=== PATIENT | male | born 1945 | race Caucasian/White ===

== ENCOUNTER → 2017-02-09 | Outpatient (CLI) | payer OTHER, MEDICARE ==
[~2017-02-09] MED LIST: ADULT LOW DOSE81 MG PO; ALDACTONE25 MG PO; AMBIENCR; B COMPLEX-VITA1 EACH PO; CALCIUM; CELLCEPT500 MG PO; ELIQUIS5 MG PO; GENGRAF25 MG PO; HUMALOG100 UNIT/1 SQ; KEFLEX500 MG PO; LISINOPRIL20 MG PO; METOCLOPRAMIDE; MULTIVITAMINS; OMEGA-3 FISH O1 EAC3 PO; OMEPRAZOLE20 M2 PO; PLAVIX 75 MG TA75 M1 PO; STOOL SOFTENER1 EAC2 PO; TENORMIN25 MG PO; VITAMIN D1000 UNI1 PO; VITAMINC500 PO; ZOCOR 20 MG TAB20 M1 PO
== END ==
LOC: RAD 16:15
DX: J90 Pleural effusion, not elsewhere classified (principal); J18.9 Pneumonia, unspecified organism; J98.11 Atelectasis

== ENCOUNTER → 2017-04-17 | Outpatient (CLI) | payer OTHER, MEDICARE ==
[~2017-04-17] MED LIST changes: +ACCUNEB SO1.25 MG/1 INH; +ACIDOPHILUS1 EAC4 PO; +AMBIEN 5 MG TABL5 M1 PO; +BENADRYL25 MG IV; +BYSTOLIC 5 MG5 M1 PO; +CLARITIN-D 12 H1 TA2 PO; +CLARITIN10 M2 PO; +DEMADEX 2020 MG/1 TA PO; +DIPHENHIST50 MG IV; +ELIQUIS2.5 MG PO; +GLUCAGON HCL1 MG SUBQ; +HEPARIN 1,1000 UNIT/ IV; +LANTUS SUBQ; +LEVAQUIN 500 M500 M2 PO; +LEVEMIR100 UNIT/1 SUBQ; +LIPITOR 20 MG T20 M1 PO; +MELATONIN5 M1 PO; +MIRALAX17 GM PO; +MUCINEX600 MG PO; +NEOSPORIN + P28.3 GM TOP; +NEPHROCAPS SOFT1 CAP PO; +NITROGLYCERIN0.4 MG SUBLING; +NOVOLOG100 UNIT/1 SUBQ; +ONDANSETRON HCL4 M1 IV PUSH; +PROTONIX40 M1 PO; +SENNA PLUS TAB1 EACH PO; +SSD CREAM 1% 5050 GM TOP; +TORSEMIDE20 MG PO; +TYLENOL EXTRA500 MG PO; +TYLENOL325 MG PO; +VANCOMYCIN HCL10 GM PO; +VENTOLIN HFA 1818 GM INH
== END ==
LOC: RAD 11:46
DX: J90 Pleural effusion, not elsewhere classified (principal); I87.8 Other specified disorders of veins; R91.8 Other nonspecific abnormal finding of lung field; I12.9 Hypertensive chronic kidney disease with stage 1 through stage 4 chronic kidney disease, or unspecified chronic kidney disease; E78.00 Pure hypercholesterolemia, unspecified; N18.9 Chronic kidney disease, unspecified; I25.10 Atherosclerotic heart disease of native coronary artery without angina pectoris

== ENCOUNTER 2017-04-19 11:16 | Inpatient (IN) | payer OTHER, MEDICARE ==
[~2017-04-19] VITALS: Ht 193 cm; Wt 78.0 kg
--- NOTE | ~2017-04-19 | CNG ---
[facility] [place] [address] CYTO-NONGYN REPORT PROCEDURE Name: ROSALINO MICHAUD Room #: 353-P ADM IN M.R.#: [id number] Admission: 04/19/17 Date of : 47 Discharge: Report #: [id number] Path Case #: [id number] CYTOPATHOLOGY REPORT COLLECTION DATE: 04/20/2017 RECEIVED DATE: 04/20/2017 SUBMITTING PHYS: Dr. Cornel Guido OTHER PHYS: CLINICAL HISTORY: Pleural effusion, hypoxia, ESRD, anticoagulated SPECIMEN(S) RECEIVED: A.Pleural fluid * * * * * * * * * * * * FINAL DIAGNOSIS: A. Pleural fluid: - No malignant epithelial cells identified. Paucicellular specimen with rare mesothelial cells and predominantly chronic inflammatory cells present. Properly controlled GMS stain (cell block, block A1) is negative for Pneumocystis and fungal elements. PATHOLOGIST: Paris Berry M.D. REPORT ELECTRONICALLY SIGNED BY: Paris Berry M.D. DATE/TIME: 04/21/2017 13:30 * * * * * * * * * * * * GROSS PATHOLOGY: A. Pleural fluid: The specimen is submitted unfixed, labeled "Rosalino Michaud Deepika". Received by the Cytology Department is 30 mL of clear yellow fluid. One ThinPrep slide and a formalin fixed cell block were prepared. Silver stain was performed on cell block. (lg.) MARKET RESEARCH SPECIALIST(S): Jovany Chapin CT([facility] INITIAL CPT CODE(S): A; 76069, 87240, 34245 Professional services performed by [facility] at [facility] [address], [place] [address] Technical services performed by [facility] at [address] [place] [address]., [address], [place] [address]. [facility] [address] [place] [address] CYTO-NONGYN REPORT PROCEDURE Name: ROSALINO MICHAUD Room #: 353-P ADM IN ..#: [id number] Admission: 04/19/17 Date of : 47 Discharge: Report #: [id number] Path Case #: [id number] [facility] [address] [place] [address], [address] [place] [address] PHONE: [phone] DIRECTOR: Wilmer Jc M.D. * * * END OF REPORT * * *
--- NOTE | ~2017-04-19 | HC ---
[facility] [place] [address] CONSULTATION Name: MANGO MICHAUD Deepika Room #: 353-P [facility] IN M.R.#: [id number] Admission: 04/19/17 Attend Phys: Cornel Guido MD Discharge: 04/26/17 Date of : 47 Report #: [id number] THIS REPORT FOR: //name// CC: FAM physician/PCP Cornel Guido DATE OF SERVICE: 04/19/2017 ATTENDING PHYSICIAN: Dr. Guido. REASON FOR CONSULTATION: End-stage renal disease and volume overload. 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 He is a longstanding diabetic of 50 years with ravages thereof. He had a renal transplant for a number of years, then a pancreas after renal transplant and after 20 years his renal transplant failed and he is back on dialysis. He has peripheral arterial disease, has had peripheral arterial procedures on both the arterial tree of both lower extremities. He has diabetes with triopathy including peripheral neuropathy, retinopathy, he is blind in his right eye and poor vision in his left. He has had amputation of the fourth and fifth toes on the right foot and the fifth toe on the left foot. He has had back surgery followed by a stroke a couple of years ago, cholecystectomy and a couple of episodes of sepsis and cardiac disease although I am unclear as to what his left ventricular performance is. HOME MEDICATIONS: Include lisinopril 20 mg daily, metoclopramide, insulin via pump, torsemide 20 mg b.i.d., Eliquis 2.5 mg b.i.d., Lipitor 20 mg daily and omeprazole 20 mg daily. ALLERGIES: REPORTEDLY TO HYDROCODONE AND CODEINE. SOCIAL HISTORY: No cigarettes. He does use an occasional alcoholic drink. REVIEW OF SYSTEMS: Taken from the patient and his at the bedside. GENERAL: He has been feeling poorly. EYES: His vision is very poor almost no vision in the right eye and not much better on the left. ENT: His hearing is decreased in the right ear. No mouth sores or ulcers. ENDOCRINE: Positive for the diabetes. RESPIRATORY: Very easily short-winded with orthopnea and some cough, no hemoptysis and no pleuritic pain. CARDIAC: No angina or palpitations recently. GASTROINTESTINAL: Poor appetite. GENITOURINARY: Does not make a lot of urine anymore. No dysuria. NEUROLOGIC: He has got peripheral neuropathy and generalized weakness. [address] [address] CONSULTATION Name: MANGO MICHAUD Room #: 353-P [facility] IN [facility].#: [id number] Admission: 04/19/17 Attend Phys: Cornel Guido MD Discharge: 04/26/17 Date of : 47 Report #: [id number] MUSCULOSKELETAL: No arthritis is reported. Extensive history taken from the electronic medical record, the patient and the at the bedside. PHYSICAL EXAMINATION: GENERAL: This is a chronically ill-appearing gentleman looking much older than his stated age. SKIN: Unremarkable. SKELETAL: Well-developed, well-nourished toe amputations as outlined above. HEENT: Extraocular movements are full. Vision is poor. Hearing is poor particularly in the right eye. Mucous membranes are moist. No buccal mucosal lesions. NECK: Supple without lymphadenopathy or carotid bruits. CHEST: Shows decreased breath sounds at the bases somewhat coarse with occasional rhonchi. HEART: Regular without murmurs, gallops or rubs. ABDOMEN: Soft and nontender. No bruits, masses or organomegaly. EXTREMITIES: Showed 2+ peripheral edema. NEUROLOGIC: Numbness down in the distal lower extremities. LABORATORY DATA: Hemoglobin 11.8 and platelets 450. Sodium 138, potassium 4.7, chloride 101, bicarbonate 31, creatinine 4 and BUN 38. Chest x-ray personally reviewed shows pleural effusions and evidence of congestive heart failure. ASSESSMENT AND PLAN: 1. End-stage renal disease continuing on 3 times weekly dialysis. He has had post-dialytic hypotension and cramping and has been difficult to get the fluid off. He has been noncompliant with his diet and with too much salty food and this has made it hard to achieve target weight. 2. Congestive heart failure. He is way fluid overloaded. We will do some extra treatments to get some fluid off today. 3. Diabetes mellitus with triopathy. His sugars have been poorly controlled. 4. Peripheral arterial disease, status post multiple stents with a small ulcer on his left instep and previous toe amputations as outlined above. 5. History of cerebrovascular accident. 6. 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 <ELECTRONICALLY SIGNED> By: Noel Stevens MD 04/27/17 1119 1611 [id number] Noel Stevens MD /nt
--- NOTE | ~2017-04-19 | 2DMMODE ---
[facility] [address] [place] [address] 2 D/M-MODE ECHOCARDIOGRAM Name: MANGO MICHAUD Room #: 353-P [facility] IN ..#: [id number] Admission: 04/19/17 Attend Phys: Cornel Guido, Discharge: Date of : 47 Date of Service: 04/20/17 0929 Report #: [id number] THIS REPORT FOR: //name// APPROVED REPORT Study performed: 04/20/2017 08:30:17 EXAM: Comprehensive 2D, Doppler, and color-flow Echocardiogram Patient Location: Echo lab Room #: 353 Status: routine BSA: 2.17 HR: 79 bpm BP: 147/59 mmHg Rhythm: NSR/Irregular Other Information Study Quality: Adequate Technically limited study due to limited patient cooperation. Constant movement. Indications Short of breath. Hx: CM, DM,CVA, HTN, HLP, PVD, ESRD 2D Dimensions RVDd: 39.32 mm LVEF(%): 49.87 (>50%) IVSd: 13.44 (7-11mm) LVOT Diam: 21.64 (18-24mm) LVDd: 47.73 mm PWd: 13.22 (7-11mm) LVDs: 35.66 (25-40mm) Aortic Root: 36.72 mm Maurer's LVEF: 49.87 % Volumes Left Atrial Volume (Systole) Single Plane 4CH: 25.97 mL Single Plane 2CH: 58.69 mL LA ESV Index: 20.00 mL/m2 Aortic Valve AoV Peak Jason.: 1.58 m/s AO Peak Gr.: 10.01 mmHg LVOT Max P.93 mmHg LVOT Max V: 0.99 m/s HARRIET Vmax: 2.30 cm2 Mitral Valve [facility] [address] [place] [address] 2 D/M-MODE ECHOCARDIOGRAM Name: MANGO MICHAUD Room #: 353-P [facility] IN .R.#: [id number] Admission: 04/19/17 Attend Phys: Cornel Guido, Discharge: Date of : 47 Date of Service: 04/20/17 0929 Report #: [id number] E/A Ratio: 1.2 MV Decel. Time: 221.61 ms MV E Max Jason.: 1.27 m/s MV A Jason.: 1.08 m/s MV PHT: 64.27 ms IVRT: 78.43 ms Pulmonary Valve PV Peak Jason.: 1.07 m/s PV Peak Gr.: 4.56 mmHg Pulmonary Vein P Vein S: 0.46 m/s P Vein D: 0.74 m/s P Vein S/D Ratio: 0.62 Tricuspid Valve TR Peak Jason.: 2.74 m/s RAP Estimate: 10.00 mmHg TR Peak Gr.: 30.00 mmHg PA Pressure: 40.00 mmHg Left Ventricle The left ventricle is normal size. Cannot rule out mild hypokinesis involving base of inferoseptum Mild concentric left ventricular hypertrophy. Left ventricular systolic function is mildly decreased. LVEF is 45%. Moderate diastolic dysfunction is present (pseudonormal filling). Right Ventricle The right ventricle is normal size. The right ventricular systolic function is normal. Atria The left atrium size is normal. The right atrium size is normal. Aortic Valve Aortic valve is calcified. No aortic regurgitation is present. There is no aortic valvular stenosis. Mitral Valve Mitral valve leaflets are mildly thickened and calcified. Trace to mild mitral regurgitation. No evidence of mitral valve stenosis. Tricuspid Valve The tricuspid valve is normal in structure. Trace to mild tricuspid [facility] [address] [place] [address] 2 D/M-MODE ECHOCARDIOGRAM Name: MANGO MICHAUD Room #: 353-P [facility] IN [facility]#: [id number] Admission: 04/19/17 Attend Phys: Cornel Guido, Discharge: Date of : 47 Date of Service: 04/20/17 0929 Report #: [id number] regurgitation. Pulmonic Valve The pulmonary valve is normal in structure. There is no pulmonic valvular regurgitation. Great Vessels The aortic root is normal in size. IVC is normal in size and collapses >50% with inspiration. Pericardium There is no pericardial effusion. Large left and right pleural effusions noted. <Conclusion> Left ventricular systolic function is mildly decreased. LVEF 45%. Mild LVH. Cannot rule out hypokinesis involving base of inferoseptum. Grade II diastolic dysfunction Aortic valve is calcified. No aortic valvular stenosis or insufficiency. Mitral valve leaflets are mildly thickened and calcified. Trace to mild mitral regurgitation. Pulmonary artery pressure could not be reliably ascertained. There is no pericardial effusion. Large left and right pleural effusions noted. <ELECTRONICALLY SIGNED> By: Clint Kelly MD, FACC 04/20/17928 8 8 Clint Kelly MD, FACC /INF
--- NOTE | ~2017-04-19 | HC ---
[facility] [place] [address] CONSULTATION Name: MANGO MICHAUD Room #: 353-P [facility] IN ..#: [id number] Admission: 04/19/17 Attend Phys: Cornel Guido MD Discharge: 04/26/17 Date of : 47 Report #: [id number] THIS REPORT FOR: //name// CC: [facility] physician/PCP Cornel Guido DATE OF SERVICE: 04/23/2017 HISTORY OF PRESENT ILLNESS: The patient is a 71-year-old white male with a history of diabetes mellitus type 1 with an insulin pump, prior CVA with some mild aphasia and residual left-sided weakness from 2 years ago, who was admitted with acute hypoxic respiratory failure. He was noted to have bilateral pleural effusions and underwent a right pneumothorax of 2250 mL on 04/20/2017. He is a premorbid dialysis patient and has a history of a failed kidney pancreas transplant. His course has been complicated by encephalopathy thought to be metabolic. He does have a head CT scheduled for today. He has had a significant functional decline overall and we are seeing him in rehabilitation medicine consultation. 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 Apparently, he had a kidney transplant in 1996 and pancreas transplant in 2003. Back surgery L4-L5 in 2013, peripheral neuropathy, hypertension, hyperlipidemia, amputation of the right fourth and fifth toes and left amputation of the fifth toe, GERD, he had a prior stroke as noted above, blind right eye, cholecystectomy. ALLERGIES: HYDROCODONE, CODEINE. HABITS: No history of tobacco or alcohol abuse. SOCIAL HISTORY: Lives in a house with his , 2 steps in. There is a stair glide to the second level. He utilizes a front-wheeled walker to ambulate around the house 20-50 feet. There is a walk-in bathroom and shower. The patient's spouse appears very involved and supportive. REVIEW OF SYSTEMS: Did not offer any current complaints of chest pain, shortness of breath or abdominal discomfort at this time. He has this premorbid blindness and has the numbness of both feet from peripheral neuropathy. Generalized weakness. Denies any focal extremity pain complaints. PHYSICAL EXAMINATION: GENERAL: A 71-year-old thin white male in no obvious distress. He is on nasal prong O2, which is new for him, currently at 2 liters. HEENT: Facies appeared symmetric. He does have decreased vision as noted above. NEUROLOGIC: Decreased verbal output. Tends to defer to [place] [address] CONSULTATION Name: MANGO MICHAUD Room #: 353-P [facility] IN .R.#: [id number] Admission: 04/19/17 Attend Phys: Cornel Guido MD Discharge: 04/26/17 Date of : 47 Report #: [id number] basic commands without difficulty. EXTREMITIES: Functional range of motion of the upper extremities with strength grade 4-/5. DTRs are trace to 1. Lower extremities, he has the prior toe amputations as noted above. Definite decreased sensation in a stocking distribution. Strength of lower extremities is probably a grade 3+ to 4- proximally and 3 to 3+ distally. Functionally, he has been max assist with sit to stand. Gait was 3 steps max assist. ASSESSMENT: A 71-year-old white male with the following problem list: 1. Multifactorial encephalopathy appears metabolic. 2. Acute hypoxemic respiratory failure. 3. Bilateral pleural effusions status post right thoracentesis with a large amount of drainage. 4. Diabetes mellitus type 1, insulin pump, prior failed kidney pancreas transplant. 5. 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 6. End-stage renal disease, on hemodialysis. 7. Decreased vision essentially blind from retinopathy. 8. Peripheral neuropathy. 9. Toe amputations. PLAN: We are assessing the patient regarding tolerance for an acute in-hospital inpatient rehabilitation stay. The rehab mora is currently tight on beds, but we will be glad to follow along with you regarding his rehab therapy needs. <ELECTRONICALLY SIGNED> By: Tahir Vargas MD 04/27/17 1226 1235 0008 Tahir Vargas MD /[facility]
--- NOTE | ~2017-04-19 | EKG ---
[place] [address] [facility] [place] [address] ELECTROCARDIOGRAM REPORT Name: MANGO MICHAUD Room #: 353-P ADM IN M.R.#: [id number] Admission: 04/19/17 Attend Phys: Cornel Guido MD Discharge: Date of : 47 Report #: [id number] THIS REPORT FOR: //name// [facility] ED Test Date: 2017-04-19 Test Time: 11:36:00 Pat Name: MANGO MICHAUD Department: Room: [facility] Gender: M Carrier Associate: Fidelina PARIS RN : 1945 Requested By: Clementine Hudson Order Number: [id number] MD: Clint Kelly Measurements Intervals [place] Rate: 78 P: 13 UT: 153 QRS: -54 QRSD: 159 T: 85 QT: 421 QTc: 480 Interpretive Statements Sinus rhythm RBBB and LAFB Left ventricular hypertrophy No previous ECG available for comparison Electronically Signed On 04-20-2017 8:15:41 PATIENT SERVICE REPRESENTATIVE by Clint Kelly [email or web address] <ELECTRONICALLY SIGNED> By: Clint Kelly MD, [facility] 04/20/17 0815 1136 113 Clint Kelly MD, FAC /EPI
[~2017-04-19 11:16] MED LIST changes: -ACCUNEB SO1.25 MG/1 INH; -ACIDOPHILUS1 EAC4 PO; -AMBIEN 5 MG TABL5 M1 PO; -BENADRYL25 MG IV; -BYSTOLIC 5 MG5 M1 PO; -CLARITIN-D 12 H1 TA2 PO; -CLARITIN10 M2 PO; -DEMADEX 2020 MG/1 TA PO; -DIPHENHIST50 MG IV; -ELIQUIS2.5 MG PO; -GLUCAGON HCL1 MG SUBQ; -HEPARIN 1,1000 UNIT/ IV; -LANTUS SUBQ; -LEVAQUIN 500 M500 M2 PO; -LEVEMIR100 UNIT/1 SUBQ; -LIPITOR 20 MG T20 M1 PO; -MELATONIN5 M1 PO; -MIRALAX17 GM PO; -MUCINEX600 MG PO; -NEOSPORIN + P28.3 GM TOP; -NEPHROCAPS SOFT1 CAP PO; -NITROGLYCERIN0.4 MG SUBLING; -NOVOLOG100 UNIT/1 SUBQ; -ONDANSETRON HCL4 M1 IV PUSH; -PROTONIX40 M1 PO; -SENNA PLUS TAB1 EACH PO; -SSD CREAM 1% 5050 GM TOP; -TORSEMIDE20 MG PO; -TYLENOL EXTRA500 MG PO; -TYLENOL325 MG PO; -VANCOMYCIN HCL10 GM PO; -VENTOLIN HFA 1818 GM INH
[2017-04-19 11:23] VITALS: BP 198/92
[2017-04-19 11:54] LABS: BE(vivo) 0.4 mmol/L (-2 to +3); HCO3 26.2 mmol/L (22.0-26.0); PCO2 47.6 mmHg (35.0-45.0); PO2 83.3 mmHg (80.0-100.0); pH 7.359 (7.360-7.450); sO2 95.8 % (92.0-98.0)
[2017-04-19] MEDS ORDERED: CLARITIN10 M2 PO (12:00)
[2017-04-19] MEDS ORDERED: TORSEMIDE20 MG PO (12:01)
[2017-04-19] MEDS ORDERED: ELIQUIS2.5 MG PO (12:01)
[2017-04-19] MEDS ORDERED: LIPITOR 20 MG T20 M1 PO (12:02)
[2017-04-19] MEDS ORDERED: MELATONIN5 M1 PO (12:02)
[2017-04-19 12:06] LABS: ABSOLUTE NEUTROPHILS 9.2 thou/uL (1.4-8.2); BASOPHILS 1.1 % (0.0-2.0); EOSINOPHILS 1.9 % (0.0-3.0); HEMOGLOBIN 11.8 gm/dL (14.0-18.0); LYMPHOCYTES 5.8 % (24.0-44.0); MCH 28.8 pg (26.0-34.0); MCHC 32.7 g/dL (28.0-37.0); MCV 88.2 fL (80.0-100.0); MONOCYTES 4.5 % (1.0-8.0); PLATELET COUNT 450 thou/uL (150-400); POLYS 86.7 % (36.0-66.0); RBC 4.08 mil/uL (4.50-6.00); RDW 14.7 % (10.5-14.5); WBC 10.6 thou/uL (4.0-11.0)
[2017-04-19 12:12] LABS: CALCIUM 9.4 mg/dL (8.5-10.1); POTASSIUM 4.7 mmol/L (3.5-5.1)
[2017-04-19 12:15] LABS: TROPONIN-I 0.05 ng/mL (<0.06)
[2017-04-19 12:26] LABS: APTT 28.2 Seconds (24.5-32.8); INR 1.1; PROTIME 11.7 Seconds (9.3-11.4)
[2017-04-19 13:09] VITALS: BP 160/79
[2017-04-19 14:15] VITALS: BP 142/62
[2017-04-19 14:27] VITALS: BP 161/81
[2017-04-19 16:15] LABS: MAGNESIUM 2.1 mg/dL (1.8-2.4); TOTAL PROTEIN 7.3 g/dL (6.4-8.2)
[2017-04-19 23:00] VITALS: BP 138/80
[2017-04-20 05:15] LABS: HEMATOCRIT 35.1 % (42.0-52.0); HEMOGLOBIN 11.1 gm/dL (14.0-18.0); MCH 28.3 pg (26.0-34.0); MCHC 31.7 g/dL (28.0-37.0); MCV 89.4 fL (80.0-100.0); RBC 3.93 mil/uL (4.50-6.00); RDW 15.1 % (10.5-14.5); WBC 8.7 thou/uL (4.0-11.0)
[2017-04-20 05:27] LABS: ALBUMIN 2.2 g/dL (3.4-5.0); CALCIUM 8.7 mg/dL (8.5-10.1); CREATININE 2.7 mg/dL (0.7-1.3); PHOSPHORUS 4.8 mg/dL (2.5-4.9); POTASSIUM 4.9 mmol/L (3.5-5.1)
[2017-04-20 05:47] VITALS: BP 163/69
[2017-04-20 07:45] VITALS: BP 147/59
[2017-04-20 10:48] LABS: CLARITY SL CLOUDY; COLOR YELLOW; SOURCE RT CHEST; TOTAL VOLUME 61 mL
[2017-04-20 11:24] LABS: BF NUCLEATED CELLS 145; BF RBC 322
[2017-04-20 12:05] LABS: BF MACROPHAGE 55; BF NEUTROPHILS 1
[2017-04-20 13:42] LABS: SOURCE RIGHT CHEST
[2017-04-20 16:09] VITALS: BP 129/52
[2017-04-20 17:09] LABS: HEP B SURFACE Ab(ANTI-HBS Reactive (()); HEPATITIS B SURFACE AG Negative (Negative)
[2017-04-20 19:20] VITALS: BP 149/68
[2017-04-21 04:40] VITALS: BP 131/60
[2017-04-21 05:06] LABS: HEMATOCRIT 33.8 % (42.0-52.0); MCH 28.8 pg (26.0-34.0); MCHC 32.5 g/dL (28.0-37.0); MCV 88.8 fL (80.0-100.0); RBC 3.81 mil/uL (4.50-6.00); RDW 15.3 % (10.5-14.5); WBC 10.4 thou/uL (4.0-11.0)
[2017-04-21 05:28] LABS: CALCIUM 8.3 mg/dL (8.5-10.1); CREATININE 2.8 mg/dL (0.7-1.3); POTASSIUM 4.8 mmol/L (3.5-5.1)
[2017-04-21 07:33] VITALS: BP 134/45
[2017-04-21 17:48] VITALS: BP 143/56
[2017-04-21 19:30] VITALS: BP 111/62
[2017-04-22 03:30] VITALS: BP 112/49
[2017-04-22 06:52] LABS: HEMATOCRIT 34.7 % (42.0-52.0); HEMOGLOBIN 11.1 gm/dL (14.0-18.0); MCH 28.1 pg (26.0-34.0); MCHC 31.9 g/dL (28.0-37.0); MCV 88.3 fL (80.0-100.0); RBC 3.93 mil/uL (4.50-6.00); RDW 15.1 % (10.5-14.5); WBC 9.8 thou/uL (4.0-11.0)
[2017-04-22 07:12] LABS: CALCIUM 8.6 mg/dL (8.5-10.1); CREATININE 3.3 mg/dL (0.7-1.3); MAGNESIUM 2.1 mg/dL (1.8-2.4); POTASSIUM 4.4 mmol/L (3.5-5.1)
[2017-04-22 08:14] VITALS: BP 148/43
[2017-04-22 11:43] VITALS: BP 126/53
[2017-04-22 15:09] LABS: BODY FLUID ALBUMIN 1.2 g/dL (()); BODY FLUID AMYLASE 10 U/L (()); BODY FLUID GLUCOSE 223 mg/dL (()); BODY FLUID LDH 90 IU/L (())
[2017-04-22 19:45] VITALS: BP 157/62
[2017-04-23 03:30] VITALS: BP 133/56
[2017-04-23 04:19] LABS: HEMATOCRIT 34.9 % (42.0-52.0); HEMOGLOBIN 11.1 gm/dL (14.0-18.0); MCH 28.1 pg (26.0-34.0); MCHC 31.9 g/dL (28.0-37.0); RBC 3.97 mil/uL (4.50-6.00); RDW 14.7 % (10.5-14.5); WBC 9.2 thou/uL (4.0-11.0)
[2017-04-23 04:20] LABS: CALCIUM 8.2 mg/dL (8.5-10.1); CREATININE 2.9 mg/dL (0.7-1.3); POTASSIUM 4.4 mmol/L (3.5-5.1)
[2017-04-23 09:09] VITALS: BP 137/46
[2017-04-23 20:22] VITALS: BP 135/58
[2017-04-24 04:53] VITALS: BP 136/57
[2017-04-24 05:53] LABS: HEMATOCRIT 35.2 % (42.0-52.0); HEMOGLOBIN 11.5 gm/dL (14.0-18.0); MCH 28.7 pg (26.0-34.0); MCHC 32.7 g/dL (28.0-37.0); MCV 87.7 fL (80.0-100.0); RBC 4.01 mil/uL (4.50-6.00); RDW 14.8 % (10.5-14.5)
[2017-04-24 06:07] LABS: CALCIUM 8.6 mg/dL (8.5-10.1); POTASSIUM 4.1 mmol/L (3.5-5.1)
[2017-04-24 06:10] LABS: CREATININE 4.2 mg/dL (0.7-1.3)
[2017-04-24 07:50] VITALS: BP 131/58
[2017-04-24 16:14] VITALS: BP 112/45
[2017-04-24 19:19] VITALS: BP 148/59
[2017-04-25 03:57] VITALS: BP 150/50
[2017-04-25 08:34] VITALS: BP 143/64
[2017-04-25 10:13] LABS: ABSOLUTE NEUTROPHILS 6.7 thou/uL (1.4-8.2); BASOPHILS 0.8 % (0.0-2.0); EOSINOPHILS 12.4 % (0.0-3.0); HEMATOCRIT 39.2 % (42.0-52.0); HEMOGLOBIN 12.3 gm/dL (14.0-18.0); LYMPHOCYTES 5.5 % (24.0-44.0); MCH 28.2 pg (26.0-34.0); MCHC 31.5 g/dL (28.0-37.0); MCV 89.6 fL (80.0-100.0); MONOCYTES 4.7 % (1.0-8.0); PLATELET COUNT 349 thou/uL (150-400); POLYS 76.6 % (36.0-66.0); RBC 4.37 mil/uL (4.50-6.00); RDW 15.3 % (10.5-14.5); WBC 8.7 thou/uL (4.0-11.0)
[2017-04-25 10:19] LABS: CALCIUM 8.4 mg/dL (8.5-10.1); CREATININE 3.7 mg/dL (0.7-1.3); POTASSIUM 4.8 mmol/L (3.5-5.1)
[2017-04-25 11:30] VITALS: BP 158/44
[2017-04-25 15:36] VITALS: BP 122/73
[2017-04-25 19:19] VITALS: BP 120/42
[2017-04-26 04:00] VITALS: BP 157/64
[2017-04-26 07:22] VITALS: BP 149/49
[2017-04-26] MEDS ORDERED: BYSTOLIC 5 MG5 M1 PO (10:51)
[2017-04-26] MEDS ORDERED: TYLENOL EXTRA500 MG PO (10:51)
[2017-04-26] MEDS ORDERED: LANTUS SUBQ ×2 (10:53→10:54)
[2017-04-26] MEDS ORDERED: NOVOLOG100 UNIT/1 SUBQ (10:54)
[2017-04-26 11:24] VITALS: BP 123/52
[2017-05-29] MEDS ORDERED: VANCOMYCIN HCL10 GM PO (08:02)
[2017-05-29] MEDS ORDERED: NOVOLOG100 UNIT/1 SUBQ (08:02)
[2017-05-29] MEDS ORDERED: VENTOLIN HFA 1818 GM INH (08:02)
[2017-05-29] MEDS ORDERED: NITROGLYCERIN0.4 MG SUBLING (08:02)
[2017-05-29] MEDS ORDERED: MUCINEX600 MG PO (08:02)
== END 2017-04-26 13:44 | DRG 291 ==
LOC: ER 11:16 → 3W 12:56 → EROBS 12:56 → 3W 14:18
PROVIDERS: Emergency Medicine; Hospitalist; Internal Medicine
PROC: 5A1D70Z Performance of Urinary Filtration, Intermittent, Less than 6 Hours Per Day (ICD-10-PCS; principal; 2017-04-19)
PROC: 5A1D70Z Performance of Urinary Filtration, Intermittent, Less than 6 Hours Per Day (ICD-10-PCS; 2017-04-20)
PROC: 0W993ZZ Drainage of Right Pleural Cavity, Percutaneous Approach (ICD-10-PCS; 2017-04-20)
PROC: 5A1D70Z Performance of Urinary Filtration, Intermittent, Less than 6 Hours Per Day (ICD-10-PCS; 2017-04-21)
PROC: 5A1D70Z Performance of Urinary Filtration, Intermittent, Less than 6 Hours Per Day (ICD-10-PCS; 2017-04-23)
PROC: 5A1D70Z Performance of Urinary Filtration, Intermittent, Less than 6 Hours Per Day (ICD-10-PCS; 2017-04-25)
PROC: 5A1D70Z Performance of Urinary Filtration, Intermittent, Less than 6 Hours Per Day (ICD-10-PCS; 2017-04-26)
DX: I13.2 Hypertensive heart and chronic kidney disease with heart failure and with stage 5 chronic kidney disease, or end stage renal disease (principal); I50.43 Acute on chronic combined systolic (congestive) and diastolic (congestive) heart failure; N18.6 End stage renal disease; J96.01 Acute respiratory failure with hypoxia; G93.40 Encephalopathy, unspecified; J93.9 Pneumothorax, unspecified; J90 Pleural effusion, not elsewhere classified; Z94.83 Pancreas transplant status; Z94.0 Kidney transplant status; I69.959 Hemiplegia and hemiparesis following unspecified cerebrovascular disease affecting unspecified side; E78.5 Hyperlipidemia, unspecified; K21.9 Gastro-esophageal reflux disease without esophagitis; E10.22 Type 1 diabetes mellitus with diabetic chronic kidney disease; E10.42 Type 1 diabetes mellitus with diabetic polyneuropathy; E10.51 Type 1 diabetes mellitus with diabetic peripheral angiopathy without gangrene; E87.70 Fluid overload, unspecified; H54.8 Legal blindness, as defined in USA; I25.10 Atherosclerotic heart disease of native coronary artery without angina pectoris; I65.29 Occlusion and stenosis of unspecified carotid artery; M62.84 Sarcopenia; F32.9 Major depressive disorder, single episode, unspecified; Z89.422 Acquired absence of other left toe(s); Z89.421 Acquired absence of other right toe(s); Z90.49 Acquired absence of other specified parts of digestive tract; Z88.6 Allergy status to analgesic agent; Z79.01 Long term (current) use of anticoagulants; Z79.899 Other long term (current) drug therapy; Z82.49 Family history of ischemic heart disease and other diseases of the circulatory system
CPT/HCPCS: 10879; 32100

== ENCOUNTER 2017-05-02 06:59 | Inpatient (IN) | payer OTHER, MEDICARE ==
[~2017-05-02] VITALS: Ht 193 cm; Wt 81.2 kg
--- NOTE | ~2017-05-02 | CNG ---
[facility] [place] [address] CYTO-NONGYN REPORT PROCEDURE Name: ROSALINO MICHAUD Room #: 440-P ADM IN M.R.#: [id number] Admission: 05/02/17 Date of : 47 Discharge: Report #: [id number] Path Case #: [id number] CYTOPATHOLOGY REPORT COLLECTION DATE: 05/06/2017 RECEIVED DATE: 05/06/2017 SUBMITTING PHYS: Dr. Ivan Powers OTHER PHYS: Dr. Carla Damico CLINICAL HISTORY: ESRD, DKA, HCAP, hyperglycemia SPECIMEN(S) RECEIVED: A.Pleural fluid * * * * * * * * * * * * FINAL DIAGNOSIS: A. Pleural fluid: - No malignant epithelial cells identified. Mesothelial cells and predominantly chronic inflammatory cells are present. PATHOLOGIST: Paris Berry M.D. REPORT ELECTRONICALLY SIGNED BY: Paris Berry M.D. DATE/TIME: 05/07/2017 11:57 * * * * * * * * * * * * GROSS PATHOLOGY: A. Pleural fluid: The specimen is submitted unfixed, labeled "Mikel, Rosalino". Received by the Cytology Department is 28 mL of cloudy yellow fluid. One ThinPrep slide and a formalin fixed cell block were prepared. (lg2) CREDENTIALING MANAGER(S): ANGELIQUE Valdez(ASCP) INITIAL CPT CODE(S): A; 36494, 72031 Professional services performed by [facility] at [place] [address], [place] [address] Technical services performed by [facility] at [address] [place] [address]., [address], [place] [address]. [facility] [address] [place] [address], [address] [place] [address] PHONE: [phone] [facility] [address] [place] [address] CYTO-NONGYN REPORT PROCEDURE Name: ROSALINO MICHAUD Room #: 440-P ADM IN M.R.#: [id number] Admission: 05/02/17 Date of : 47 Discharge: Report #: [id number] Path Case #: [id number] DIRECTOR: Wilmer Jc M.D. * * * END OF REPORT * * *
--- NOTE | ~2017-05-02 | HC ---
[facility] [address] [place] [address] CONSULTATION Name: MANGO MICHAUD Room #: 440-P [facility] IN M.R.#: [id number] Admission: 05/02/17 Attend Phys: Carla Damico Discharge: Date of : 47 Report #: [id number] THIS REPORT FOR: //name// CC: GLORIA Hernandez [facility] physician/PCP Carla Damico DATE OF SERVICE: 05/02/2017 REASON FOR CONSULTATION: End-stage renal disease. HISTORY OF PRESENT ILLNESS: This is a 71-year-old male who is very well known to our service. He has end-stage renal disease as a chronic hemodialysis patient. He has had a complex recent history. He was in [facility] recently with worsening dyspnea. He had pleural effusion and had a right thoracentesis done. He ended up with a pneumothorax and a chest tube in place. He ended up being in hospital for about a week. He eventually got better and was discharged 6 days ago to [facility]. He has been over there. During that time, he has been getting physical therapy and is only slowly improving as far as strength. He has been getting dialysis at [facility]. His is present in the room and she tells me he had dialysis Thursday and Thursday, but had no ultrafiltration done due to blood pressure concerns. He had dialysis again yesterday and blood pressure is a bit better and they had about 500 mL of ultrafiltration. The patient has still been short of breath. He has been very weak. Some time yesterday his glucose started increasing. With that his sugar went up to the 500 range. He ended up being over 700 by the time he got to the Emergency Room here. He was given some insulin and it has started to come down. He is admitted for further care. PAST MEDICAL HISTORY: End-stage renal disease. He has had longstanding diabetes. He had prior kidney and pancreas transplant. Those have now both failed. He has been back on dialysis and normally has been dialyzing at the [facility], [facility]. He historically had trouble with ultrafiltration with dialysis. He has had chronic problems with hypertension and hypotension, lower extremity edema and the pleural effusions. He has had some problem with congestive heart failure, but his last ejection fraction was actually 45%. He has had the recurrent pleural effusions, the tube thoracostomy as noted above. His kidney and pancreas transplant were removed. He still makes a slight amount of urine. He has been weaned off his immunosuppressive medications. With his diabetes, he has severe peripheral neuropathy, retinopathy. Vision is nearly absent. 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 He also has some hearing deficit. He has extreme peripheral neuropathy. He has had a previous CVA. Currently, he is dialyzing with a left upper arm fistula, which has been a good fistula and has been functioning well of late. MEDICATIONS ON ADMISSION: Torsemide 20 mg b.i.d. as he still makes a small [facility] [address] [place] [address] CONSULTATION Name: MANGO MICHAUD Room #: 440-P [facility] IN M.R.#: [id number] Admission: 05/02/17 Attend Phys: Carla Damico Discharge: Date of : 47 Report #: [id number] amount of urine. Eliquis 2.5 mg b.i.d., atorvastatin 20 mg daily, levofloxacin 500 mg every other day, a dialysis vitamin, albuterol inhaler, Levemir, nebivolol 5 mg daily, pantoprazole 40 mg daily. ALLERGIES: Listed to HYDROCODONE, PHENERGAN, CODEINE. SOCIAL HISTORY: The patient is . He is medically disabled at this point. His accompanies him at this time. He has been living at the [facility] over the past week after being in the hospital here just prior to that. REVIEW OF SYSTEMS: Appetite has been poor. Currently, no nausea and vomiting. He has chronic dyspnea, although he thinks it is better. No current cough or sputum, unaware of fevers, chills or sweats. He has been doing his rehab as noted above, still makes a small amount of urine, no diarrhea, unaware until yesterday that his sugar was going up. Fistula has been working well for dialysis in his left arm. PHYSICAL EXAMINATION: GENERAL: A 71-year-old male, very hard of hearing, does awaken. States he is feeling okay at this time, does not appear to be in any extremis. VITAL SIGNS: Blood pressure 148/62, heart rate 70, temperature 98.3, oxygen saturation 98%. HEENT: Oral mucosa somewhat dry. NECK: Veins are not distended. Neck is supple, no adenopathy. CHEST: Shows decreased breath sounds, particularly on the right base. Upper lung shaw are fairly clear. Again, no egophony, although very dull in the right base. HEART: Has a regular rate and rhythm. ABDOMEN: Few bowel sounds are present. Abdomen is soft and nontender. No evidence of abdominal wall edema or ascites. Unable to palpate organomegaly or masses. EXTREMITIES: Remarkably show no lower extremity edema, which is an unusual finding for him. LABORATORY DATA: Sodium 132, potassium 5.1, chloride 92, bicarbonate 22, BUN 39, creatinine 3.7, glucose 707, calcium 8.1. Lactate 1.9. INR 1.1. White count 6.8, hemoglobin 10.5, hematocrit 33.7, platelets 288,000. ASSESSMENT: 1. Hyperglycemia. This is a bit more labeled than usual, uncertain what is driving it. He does not appear to be infected. He is certainly not septic. He needs extra insulin. This should come down. 2. End-stage renal disease. He last dialyzed yesterday. Volume and labs are okay accordingly. I spoke with the Emergency Room staff when they first called saying that he did not need additional fluids as long as his blood pressure is [facility] [address] [place] [address] CONSULTATION Name: MANGO MICHAUD Room #: 440-P [facility] IN M.R.#: [id number] Admission: 05/02/17 Attend Phys: Carla Damico Discharge: Date of : 47 Report #: [id number] okay. Pressure is good and volume on exam is okay. He historically had a very difficult time getting volume off with dialysis, so we want to avoid aggressive volume replacement at this point. I do not think he currently is massively volume deplete. If his pressure drops, we will give him some normal saline and a controlled bolus, but at this point he does not need extra IV fluids. 3. Right pleural effusion, still present. We will review that x-ray when we can pull it up and compare what it looks like. The question is does he need further chest tube drainage. 5. Longstanding diabetes mellitus with severe peripheral neuropathy, gastroparesis, retinopathy and obviously has end-stage renal disease. 6. Prior kidney and pancreas transplant. No longer on immunosuppressive therapy. 7. Hyperlipidemia, on therapy. 8. Anemia of end-stage renal disease. PLAN: 1. I will stop his IV fluids. 2. Adjust his diet to reflect both his renal and diabetic concerns. 3. Closely monitor sugars. 4. Closely follow labs. 5. He has been put back on antibiotics. If he does appear to be septic, I would certainly recommend continued antibiotics, but I am not sure chest x-ray changes are actually consistent with an infective process at this time. We might to hold them to avoid additional complications related to those antibiotics. 6. Dialysis. Currently we will plan on 05/04/2017 for his next dialysis. 7. We will follow along closely in his care. Please call if you have any questions. <ELECTRONICALLY SIGNED> By: Kevin Pinedo MD 05/04/17 0722 1302 2205 Kevin Pinedo MD /nt
--- NOTE | ~2017-05-02 | HC ---
[facility] [place] [address] CONSULTATION Name: JASWANTMANGO Room #: 440-P [facility] IN M.R.#: [id number] Admission: 05/02/17 Attend Phys: Carla Damico Discharge: Date of : 47 Report #: [id number] THIS REPORT FOR: //name// CC: RACHEL physician/PCP Carla Damico DATE OF SERVICE: 05/04/2017 HISTORY OF PRESENT ILLNESS: The patient is known to me, was recently seen in consultation on to 04/23/2017 at that time had a multifactorial encephalopathy appearing metabolic with acute hypoxic respiratory failure, bilateral pleural effusions, status post right thoracentesis with a large amount of drainage of 20-50 mL on 04/20/2017. He has diabetes mellitus type 1, insulin pump, prior failed kidney and pancreas transplant. 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 The patient was discharged to [facility] and was working in therapies with some progression in his functional mobility. He unfortunately had worsening of his medical condition with a blood sugar noted to be 700 per the . He was readmitted to [facility]. Also, was noted to have a pleural effusion and pulmonary was involved and the plan is to undergo another thoracentesis. He is noted to have uncontrolled diabetes mellitus type 2, acute on chronic respiratory failure with the need for nasal prong O2, CHF. He has the noted encephalopathy as above. We are seeing him again in rehabilitation medicine consultation. 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 He had a kidney transplant in 1996 and pancreas transplant in 2003. He had back surgery L4-L5 in 2013, history of peripheral neuropathy, hypertension, hyperlipidemia, amputation of the right fourth and fifth toes and left amputation of the fifth toe, GERD. He had the prior stroke as noted above, blind right eye, cholecystectomy. ALLERGIES: HYDROCODONE AND CODEINE. HABITS: No history of tobacco or alcohol abuse. SOCIAL HISTORY: Lives in a house with his , 2 steps in. There is a stair glide to the second level. He utilizes a front-wheeled walker to ambulate around the house 20-50 feet. There is noted to be walk-in bathroom and shower. The patient's spouse is involved. He apparently works and he is on dialysis Thursday, Thursday and Thursday, but he has been home alone by himself using the walker on Tuesdays and . REVIEW OF SYSTEMS: No current complaints of chest pain, shortness of breath, abdominal discomfort. He has the premorbid blindness and has peripheral neuropathy. [address] [address] CONSULTATION Name: MANGO MICHAUD Room #: 440-P [facility] IN M.R.#: [id number] Admission: 05/02/17 Attend Phys: Carla Damico Discharge: Date of : 47 Report #: [id number] PHYSICAL EXAMINATION: GENERAL: A 71-year-old male, obvious distress. He is on nasal prong O2, currently on 2 liters. NEUROLOGIC: There is a latency to his responses and he tends to defer to his . He can follow basic 1 step commands. Facies appeared symmetric. He has decreased vision as noted above. Some decreased verbal output, but is pleasant, overall and cooperative. EXTREMITIES: He has functional range of motion of the upper extremities. Strength is grade 4-/5. DTRs are trace to 1. Lower extremities, he has the prior toe amputations as noted above. Definite decreased sensation in a stocking distribution. Strength of the lower extremities is grade 3+ to 4-/5 proximally and 3 to 3+ distally. Therapy will be evaluating him. ASSESSMENT: A 71-year-old white male with the following problem list: 1. Recent multifactorial encephalopathy. 2. Acute on chronic respiratory failure. 3. Uncontrolled diabetes mellitus. Was noted to have sugars in the 700s per and was uncontrolled on admission greater than 500. 4. Hematochezia, hemoglobin 10.5-11.8. This is being monitored. 5. End-stage renal disease, on hemodialysis. 6. Failed prior kidney and pancreas transplant. 7. History of congestive heart failure. 8. Coronary artery disease. 9. Past history of a stroke with some residual left-sided weakness. 10. Peripheral neuropathy with distal lower extremity weakness and numbness. 11. Decreased vision essentially blind from retinopathy. 12. Toe amputations. 13. Insulin-dependent diabetes mellitus type 1. PLAN: Therapies are to evaluate. Pulmonary is to consult and it sounds like he is going to need another pleural effusion. We are considering him for an acute in-hospital [address] [place] [address] inpatient rehabilitation stay as he further medically stabilizes. Discussion with the patient's . We will be glad to follow along with you. <ELECTRONICALLY SIGNED> By: Tahir Vargas MD 05/05/17 1554 [id number] 0109 Tahir Vargas MD /SAMANTHA
--- NOTE | ~2017-05-02 | CNG ---
[facility] [place] [address] CYTO-NONGYN REPORT PROCEDURE Name: ROSALINO MICHAUD Room #: 440-P ADM IN M.R.#: [id number] Admission: 05/02/17 Date of : 47 Discharge: Report #: [id number] Path Case #: [id number] CYTOPATHOLOGY REPORT COLLECTION DATE: 05/08/2017 RECEIVED DATE: 05/08/2017 SUBMITTING PHYS: Dr. Carla Damico OTHER PHYS: Dr. Ivan Powers CLINICAL HISTORY: Hyperglycemia, ESRD,DKA, HCAP SPECIMEN(S) RECEIVED: A.Pleural fluid, Right * * * * * * * * * * * * FINAL DIAGNOSIS: A. Right Pleural fluid: - No malignant cells identified. - Reactive mesothelial cells and inflammatory cells identified. PATHOLOGIST: Shirley Mattson M.D. REPORT ELECTRONICALLY SIGNED BY: Shirley Mattson M.D. DATE/TIME: 05/11/2017 14:08 * * * * * * * * * * * * GROSS PATHOLOGY: A. Pleural fluid, Right: The specimen is submitted unfixed, labeled "Rosalino Michaud Deepika". Received by the Cytology Department is 35 mL of cloudy yellow fluid. One ThinPrep slide and an formalin fixed cell block were prepared. (mm 05.08.2017) STRUCTURAL LAYOUT WORKER(S): ANGELIQUE Matute([facility]) INITIAL CPT CODE(S): A; [id number] [place] [address] Professional services performed by [facility] at [facility] [address], [place] [address] Technical services performed by [facility] at [address] [place] [address]., [address], [place] [address]. [facility] [address] [place] [address], [facility] [address] [place] [address] PHONE: [phone] [facility] [address] [place] [address] CYTO-NONGYN REPORT PROCEDURE Name: ROSALINO MICHAUD Room #: 440-P ADM IN .R.#: [id number] Admission: 05/02/17 Date of : 47 Discharge: Report #: [id number] Path Case #: [id number] DIRECTOR: Wilmer Jc M.D. * * * END OF REPORT * * *
--- NOTE | ~2017-05-02 | HC ---
[facility] [place] [address] CONSULTATION Name: MANGO MICHAUD Room #: 440-P ADM IN M.R.#: [id number] Admission: 05/02/17 Attend Phys: Carla Damico Discharge: Date of : 47 Report #: [id number] THIS REPORT FOR: //name// CC: RACHEL physician/PCP Carla Damico ROOM: 440 PATIENT OF: Dr. Damico. SUBJECTIVE: One of multiple recent problems for this 71-year-old white male with an approximately 50-year history of diabetes. The patient has recently been on an insulin pump. He has a history of chronic renal failure and is now on dialysis. He is hospitalized for recurrent thoracentesis. He is also currently undergoing dialysis. Blood sugar control has been variable with current regimen. Otherwise, there is no available endocrine history except as per prior records. MEDICATIONS: At the time of consultation include multivitamins, torsemide, pantoprazole, guaifenesin, atorvastatin, loratadine, alprazolam, acetaminophen, zolpidem, nitroglycerin, ondansetron subq, lispro and detemir insulin, levofloxacin, piperacillin and possibly other medication. Otherwise, there is no available medical history. OBJECTIVE: LABORATORY DATA: Blood sugar control has been variable with an admission glucose of 500+. The patient has had glucoses of size 700 in recent past and is low as the 50s on his insulin regimen as mentioned above Hemoglobin A1c when last evaluated was 6.9. C-peptide is pending. PHYSICAL EXAMINATION: GENERAL: The patient 71-year-old white male in no acute distress. VITAL SIGNS: Height and weight are as per the chart. The patient is afebrile. He is currently on dialysis. Heart rate 88 and regular, blood pressure 140/73. SKIN: Somewhat sallow. HEENT: PERRL. CHEST: Clear. HEART: Regular rhythm without murmurs, rubs or gallops. ABDOMEN: Benign. EXTREMITIES: Show no edema, cyanosis or clubbing. Peripheral pulses slightly diminished in the distal lower extremities. NEUROLOGIC: Evaluation was difficult to accomplish while the patient was receiving hemodialysis. ASSESSMENT: 1. Diabetes mellitus, an unknown degree of control. 2. Complications of diabetes including chronic renal failure on dialysis and [address] [address] CONSULTATION Name: MANGO MICHAUD Room #: 440-P [facility] IN ..#: [id number] Admission: 05/02/17 Attend Phys: Carla Damico Discharge: Date of : 47 Report #: [id number] some apparent element of vasculopathy. PLAN: We will continue to readjust diet and insulin and attempt to improve glucose control utilizing lispro, but we will attempt to use a true basal insulin rather than Levemir to hopefully stabilize glucose control and avoid both hyper and hypoglycemic episodes. Thank you very much for this consultation. I will continue to follow the patient with you for attempted management of diabetes mellitus. <ELECTRONICALLY SIGNED> By: Tahir Elizabeth MD 05/09/17 1125 1310 2047 Tahir Elizabeth MD /nt
--- NOTE | ~2017-05-02 | D ---
[facility] [place] [address] DISCHARGE SUMMARY Name: JASWANTMANGO Room #: 440-P [facility] IN .R.#: [id number] Admission: 05/02/17 Attend Phys: Carla Damico Discharge: 05/11/17 Date of : 47 Report #: [id number] THIS REPORT FOR: //name// CC: RACHEL physician/PCP Carla Damico DATE OF SERVICE: 05/11/2017 HISTORY OF PRESENT ILLNESS: The patient is a 71-year-old man with very complicated past medical history, including end-stage renal disease and diabetes mellitus type 1 who was admitted to the hospital with severe hyperglycemia. Please refer to admission H and P for details. In brief, the patient was also found to have pleural effusion. HOSPITALIZATION COURSE: The patient was hospitalized for severe hyperglycemia. The patient is on insulin pump. Apparently, the patient was at the rehab, where his pump was mismanaged. The patient was started on injectable insulin. His sugars stabilized, but he had wide blood sugar excursions. After several changes, blood sugars were more stable. Film Processing Shift Supervisor was consulted. The patient has been treated with basal and bolus insulin regimen. Another complicating factor was the patient's erratic food intake. Currently, blood sugars are stable, mostly between 100 and 200 range. The patient was also found to have pleural effusion. Initially nature of the pleural effusion was not clear. He was empirically treated with antibiotics. He had thoracentesis, with 2 liters fluid removed on May 06. Fluid analysis was consistent with transudate. Antibiotics were discontinued. The patient was seen and evaluated by physical therapist. He was also assessed by rehab team. Acute rehab was recommended. The patient will be transferred to the acute rehab later today. DISCHARGE DIAGNOSES: 1. Volume overload, right-sided pleural effusion. Status post thoracentesis on 05/06/2017. This has been a recurrent problem. The patient had thoracentesis last month. Fluid analysis is consistent with transudate. 2. Diabetes mellitus type 1, , with wide blood sugar excursions. Hemoglobin A1c 6.9%. 3. Diarrhea on admission, resolved. Negative evaluation for Clostridium difficile. 4. Congestive heart failure, systolic, ejection fraction is 45%. Compensated. 5 End-stage renal disease, on hemodialysis 3 days a week. 6. Coronary artery disease. 7. Dyslipidemia. 8. Recent pneumothorax. [facility] [address] [place] [address] DISCHARGE SUMMARY Name: MANGO MICHAUD Room #: 440-P [facility] IN M.R.#: [id number] Admission: 05/02/17 Attend Phys: Carla Damico Discharge: 05/11/17 Date of : 47 Report #: [id number] 9. Recent pleural effusions, status post thoracentesis last month. DISCHARGE MEDICATIONS: Please refer to the medication reconciliation list. DISPOSITION: The patient is transferred to the acute rehab. I spent greater than 30 minutes to coordinate the patient's discharge from the hospital. <ELECTRONICALLY SIGNED> By: Bianka Crain MD 05/11/17 [id number] 1839 Bianka Crain MD /nt
--- NOTE | ~2017-05-02 | HC ---
[facility] [place] [address] CONSULTATION Name: JASWANTMANGO Room #: 440-P [facility] IN M.R.#: [id number] Admission: 05/02/17 Attend Phys: Carla Damico Discharge: 05/11/17 Date of : 47 Report #: [id number] THIS REPORT FOR: //name// CC: RACHEL physician/PCP Carla Damico MD DATE OF SERVICE: 05/04/2017 REFERRING PROVIDER: Dr. Damico. REASON FOR CONSULTATION: Pleural effusion. CHIEF COMPLAINT: Hyperglycemia. HISTORY OF PRESENT ILLNESS: Our group was asked to evaluate the patient who is hospitalized at [facility], presented for admission 2 days ago with hyperglycemia at the pulmonary rehab and recently been admitted for shortness of breath, found to have large bilateral pleural effusions which have been known for quite some time, followed by Dr. Sherwood in our office for similar findings. The patient has not had a thoracentesis up until 04/20. Post-procedure, there have been problems associated with pneumothorax, is unclear if this was pneumothorax ex vacuo or procedure-related pneumothorax. This had resolved; however, when the patient was readmitted this time from rehab with hyperglycemia, was noted to have bilateral effusions. CT scan of the chest showed large, right greater than left pleural effusions again. Previous thoracentesis was consistent with transudate. The patient does have some dyspnea on exertion and some chest discomfort. No recent fevers, chills or sweats. He is on antibiotics for possible pneumonia, although has no leukocytosis either. states on recent admission, the patient had extensive and aggressive dialysis to remove excessive fluid and the patient became somewhat hypotensive at one point and has had some difficulty recovering from that. ALLERGIES: Include CODEINE, HYDROCODONE, and CARVEDILOL. PAST MEDICAL HISTORY: 1. Coronary artery disease. 2. Diabetes mellitus. 3. History of failed pancreas transplant. 4. Renal transplant failure. 5. Hypertension. 6. Peripheral vascular disease. 7. Cerebrovascular disease. 8. Chronic pleural effusions. 9. Prior cerebrovascular accident. [facility] [address] [place] [address] CONSULTATION Name: MANGO MICHAUD Room #: 440-P [facility] IN M.R.#: [id number] Admission: 05/02/17 Attend Phys: Carla Landry Discharge: 05/11/17 Date of : 47 Report #: [id number] 10. Peripheral neuropathy. SOCIAL HISTORY: The patient is a never smoker, no alcohol consumption. FAMILY HISTORY: Significant for mother who had congestive heart failure. REVIEW OF SYSTEMS: Twelve-point review of systems except otherwise is normal except for as described in HPI and complaints of weakness. PHYSICAL EXAMINATION: VITAL SIGNS: Afebrile, pulse 80s, respiratory 18, blood pressure 148/59, oxygen saturation 99% on 2 liter nasal cannula. GENERAL: This is a pleasant elderly male, in no distress. ENT: Clear oropharynx. Mallampati 1 airway. NECK: Supple, no lymphadenopathy. LUNGS: Markedly diminished on the right half way up with dullness to percussion, about one-third of the way up on the left. No wheezes or crackles. CARDIOVASCULAR: Heart regular. No murmurs noted. ABDOMEN: Soft, nontender, no masses. EXTREMITIES: Revealed 1+ upper extremity edema with no lower extremity edema. LABORATORY DATA: White blood cell count 8000, hemoglobin 10, hematocrit 32, platelet count 291. INR 1.1. Sodium is 134, potassium 4.1, chloride 100, bicarbonate 31, BUN 48, creatinine 4.4, glucose 58. IMPRESSION: 1. Recurrent bilateral pleural effusions of unclear etiology, likely related to renal failure given the transudate nature; however, a little bit of a curiosity of what may have been a trapped lung on prior thoracentesis. 2. . 3. Possible pneumonia. I doubt there is pneumonia, there is nothing for infection, would consider discontinuing antibiotics as CT shows no infiltrates, just effusions and has not had a white cell count or fever. Cultures to date are negative. No sputum production. 4. End-stage renal disease, on hemodialysis. SUGGESTIONS: 1. Hold Eliquis. 2. Consider thoracentesis off Eliquis on the right chest. 3. Consider discontinuing antibiotics. We will follow along with you. Thank you for requesting our suggestions. <ELECTRONICALLY SIGNED> By: Ivan Powers MD 05/22/17 1452 [id number] Ivan Powers MD /nt
[2017-05-02 06:59] VITALS: BP 152/56
[~2017-05-02 06:59] MED LIST changes: +BYSTOLIC 5 MG5 M1 PO; +CLARITIN10 M2 PO; +ELIQUIS2.5 MG PO; +LANTUS SUBQ; +LIPITOR 20 MG T20 M1 PO; +MELATONIN5 M1 PO; +NOVOLOG100 UNIT/1 SUBQ; +TORSEMIDE20 MG PO; +TYLENOL EXTRA500 MG PO
[2017-05-02] MEDS ORDERED: LEVAQUIN 500 M500 M2 PO (07:10)
[2017-05-02] MEDS ORDERED: NEOSPORIN + P28.3 GM TOP (07:11)
[2017-05-02] MEDS ORDERED: NEPHROCAPS SOFT1 CAP PO (07:11)
[2017-05-02] MEDS ORDERED: SENNA PLUS TAB1 EACH PO (07:12)
[2017-05-02] MEDS ORDERED: SSD CREAM 1% 5050 GM TOP (07:13)
[2017-05-02] MEDS ORDERED: TYLENOL325 MG PO ×2 (07:13→07:14)
[2017-05-02] MEDS ORDERED: ACCUNEB SO1.25 MG/1 INH (07:15)
[2017-05-02] MEDS ORDERED: BENADRYL25 MG IV (07:17)
[2017-05-02] MEDS ORDERED: DIPHENHIST50 MG IV (07:18)
[2017-05-02] MEDS ORDERED: HEPARIN 1,1000 UNIT/ IV (07:18)
[2017-05-02] MEDS ORDERED: NOVOLOG100 UNIT/1 SUBQ (07:19)
[2017-05-02] MEDS ORDERED: LEVEMIR100 UNIT/1 SUBQ ×2 (07:21)
[2017-05-02] MEDS ORDERED: CLARITIN-D 12 H1 TA2 PO (07:22)
[2017-05-02] MEDS ORDERED: BYSTOLIC 5 MG5 M1 PO (07:23)
[2017-05-02] MEDS ORDERED: NITROGLYCERIN0.4 MG SUBLING (07:23)
[2017-05-02] MEDS ORDERED: PROTONIX40 M1 PO (07:24)
[2017-05-02 07:51] LABS: ABSOLUTE NEUTROPHILS 5.3 thou/uL (1.4-8.2); BASOPHILS 1.2 % (0.0-2.0); EOSINOPHILS 2.8 % (0.0-3.0); HEMATOCRIT 33.7 % (42.0-52.0); HEMOGLOBIN 10.5 gm/dL (14.0-18.0); LYMPHOCYTES 9.7 % (24.0-44.0); MCH 28.4 pg (26.0-34.0); MCHC 31.2 g/dL (28.0-37.0); MONOCYTES 7.7 % (1.0-8.0); PLATELET COUNT 288 thou/uL (150-400); POLYS 78.6 % (36.0-66.0); RBC 3.71 mil/uL (4.50-6.00); RDW 15.6 % (10.5-14.5); WBC 6.8 thou/uL (4.0-11.0)
[2017-05-02 08:02] LABS: CALCIUM 8.1 mg/dL (8.5-10.1); CREATININE 3.7 mg/dL (0.7-1.3); POTASSIUM 5.1 mmol/L (3.5-5.1)
[2017-05-02 08:07] LABS: APTT 28.3 Seconds (24.5-32.8); INR 1.1; PROTIME 10.7 Seconds (9.3-11.4)
[2017-05-02 10:23] VITALS: BP 148/62
[2017-05-02 10:45] VITALS: BP 143/47
[2017-05-02 19:10] VITALS: BP 132/46
[2017-05-02 23:55] VITALS: BP 105/43
[2017-05-03 05:00] VITALS: BP 126/60
[2017-05-03 05:28] LABS: ABSOLUTE NEUTROPHILS 6.7 thou/uL (1.4-8.2); BASOPHILS 1.1 % (0.0-2.0); EOSINOPHILS 11.9 % (0.0-3.0); HEMATOCRIT 36.2 % (42.0-52.0); HEMOGLOBIN 11.8 gm/dL (14.0-18.0); LYMPHOCYTES 13.4 % (24.0-44.0); MCH 28.4 pg (26.0-34.0); MCHC 32.7 g/dL (28.0-37.0); MCV 86.9 fL (80.0-100.0); PLATELET COUNT 306 thou/uL (150-400); POLYS 65.6 % (36.0-66.0); RBC 4.17 mil/uL (4.50-6.00); RDW 14.9 % (10.5-14.5); WBC 10.3 thou/uL (4.0-11.0)
[2017-05-03 05:34] LABS: ALBUMIN 1.7 g/dL (3.4-5.0); CALCIUM 8.1 mg/dL (8.5-10.1); CREATININE 4.4 mg/dL (0.7-1.3); PHOSPHORUS 4.6 mg/dL (2.5-4.9)
[2017-05-03 05:35] LABS: POTASSIUM 4.1 mmol/L (3.5-5.1)
[2017-05-03 09:32] VITALS: BP 130/52
[2017-05-03 15:17] LABS: PROCALCITONIN 0.32 ng/mL (<0.50)
[2017-05-03 16:06] LABS: GLYCOHEMOGLOBIN (HGB A1C) 6.9 % (4.8-5.6)
[2017-05-03 17:50] VITALS: BP 148/64
[2017-05-03 20:09] VITALS: BP 147/61
[2017-05-04 03:56] VITALS: BP 157/56
[2017-05-04 06:41] LABS: ABSOLUTE NEUTROPHILS 5.9 thou/uL (1.4-8.2); BASOPHILS 1.1 % (0.0-2.0); EOSINOPHILS 10.6 % (0.0-3.0); HEMATOCRIT 31.6 % (42.0-52.0); HEMOGLOBIN 10.4 gm/dL (14.0-18.0); LYMPHOCYTES 10.5 % (24.0-44.0); MCH 28.4 pg (26.0-34.0); MCHC 32.9 g/dL (28.0-37.0); MCV 86.4 fL (80.0-100.0); MONOCYTES 6.1 % (1.0-8.0); PLATELET COUNT 291 thou/uL (150-400); POLYS 71.7 % (36.0-66.0); RBC 3.66 mil/uL (4.50-6.00); RDW 15.3 % (10.5-14.5); WBC 8.3 thou/uL (4.0-11.0)
[2017-05-04 06:49] LABS: ALBUMIN 1.7 g/dL (3.4-5.0); CREATININE 5.1 mg/dL (0.7-1.3); PHOSPHORUS 5.4 mg/dL (2.5-4.9); POTASSIUM 5.1 mmol/L (3.5-5.1)
[2017-05-04 12:00] VITALS: BP 155/83
[2017-05-04 16:00] VITALS: BP 148/59
[2017-05-04 23:01] VITALS: BP 179/70
[2017-05-05 05:16] VITALS: BP 140/46
[2017-05-05 06:03] LABS: ABSOLUTE NEUTROPHILS 4.5 thou/uL (1.4-8.2); BASOPHILS 1.2 % (0.0-2.0); EOSINOPHILS 14.2 % (0.0-3.0); HEMATOCRIT 31.9 % (42.0-52.0); HEMOGLOBIN 10.5 gm/dL (14.0-18.0); LYMPHOCYTES 13.4 % (24.0-44.0); MCH 28.6 pg (26.0-34.0); MCHC 33.1 g/dL (28.0-37.0); MCV 86.5 fL (80.0-100.0); MONOCYTES 7.4 % (1.0-8.0); PLATELET COUNT 277 thou/uL (150-400); POLYS 63.8 % (36.0-66.0); RBC 3.69 mil/uL (4.50-6.00); WBC 7.1 thou/uL (4.0-11.0)
[2017-05-05 06:14] LABS: ALBUMIN 1.7 g/dL (3.4-5.0); PHOSPHORUS 4.2 mg/dL (2.5-4.9)
[2017-05-05 06:15] LABS: CREATININE 3.5 mg/dL (0.7-1.3)
[2017-05-05 08:00] VITALS: BP 150/48
[2017-05-05 16:00] VITALS: BP 148/64
[2017-05-05 21:20] VITALS: BP 159/71
[2017-05-06 04:58] VITALS: BP 150/52
[2017-05-06 06:48] LABS: ABSOLUTE NEUTROPHILS 4.6 thou/uL (1.4-8.2); BASOPHILS 1.1 % (0.0-2.0); EOSINOPHILS 16.3 % (0.0-3.0); HEMATOCRIT 30.8 % (42.0-52.0); LYMPHOCYTES 13.8 % (24.0-44.0); MCH 28.1 pg (26.0-34.0); MCHC 32.4 g/dL (28.0-37.0); MCV 86.7 fL (80.0-100.0); PLATELET COUNT 274 thou/uL (150-400); POLYS 62.8 % (36.0-66.0); RBC 3.55 mil/uL (4.50-6.00); RDW 15.3 % (10.5-14.5); WBC 7.3 thou/uL (4.0-11.0)
[2017-05-06 07:06] LABS: CALCIUM 8.1 mg/dL (8.5-10.1); CREATININE 4.4 mg/dL (0.7-1.3)
[2017-05-06 08:06] VITALS: BP 145/77
[2017-05-06 11:25] LABS: CLARITY CLEAR; COLOR YELLOW; SOURCE RIGHT CHEST; TOTAL VOLUME 60 mL
[2017-05-06 12:41] LABS: BF NUCLEATED CELLS 257; BF RBC 957
[2017-05-06 13:06] LABS: BF NEUTROPHILS 0
[2017-05-06 13:07] LABS: BF MACROPHAGE 6
[2017-05-06 17:00] VITALS: BP 126/52
[2017-05-06 19:30] VITALS: BP 141/64
[2017-05-07 03:46] VITALS: BP 123/51
[2017-05-07 05:40] LABS: ABSOLUTE NEUTROPHILS 4.8 thou/uL (1.4-8.2); EOSINOPHILS 13.5 % (0.0-3.0); HEMATOCRIT 31.1 % (42.0-52.0); HEMOGLOBIN 10.2 gm/dL (14.0-18.0); LYMPHOCYTES 13.1 % (24.0-44.0); MCH 28.7 pg (26.0-34.0); MCHC 32.8 g/dL (28.0-37.0); MCV 87.3 fL (80.0-100.0); MONOCYTES 6.2 % (1.0-8.0); PLATELET COUNT 258 thou/uL (150-400); POLYS 66.2 % (36.0-66.0); RBC 3.57 mil/uL (4.50-6.00); RDW 15.4 % (10.5-14.5); WBC 7.2 thou/uL (4.0-11.0)
[2017-05-07 05:49] LABS: CALCIUM 7.6 mg/dL (8.5-10.1); POTASSIUM 4.3 mmol/L (3.5-5.1)
[2017-05-07 08:00] VITALS: BP 155/71
[2017-05-07 13:11] LABS: BODY FLUID ALBUMIN 1.5 g/dL (()); BODY FLUID AMYLASE 13 U/L (()); BODY FLUID GLUCOSE 128 mg/dL (()); BODY FLUID LDH 157 IU/L (()); BODY FLUID PROTEIN 2.6 g/dL (())
[2017-05-07 19:02] VITALS: BP 138/53
[2017-05-08 04:18] VITALS: BP 150/53
[2017-05-08 09:15] VITALS: BP 146/73
[2017-05-08 15:27] LABS: SOURCE RIGHT CHEST
[2017-05-08 15:27] LABS: CLARITY SLIGHTLY CLOUDY; COLOR YELLOW; SOURCE RIGHT CHEST; TOTAL VOLUME 64 mL
[2017-05-08 15:46] LABS: BF NUCLEATED CELLS 358; BF RBC 1175
[2017-05-08 16:43] VITALS: BP 167/71
[2017-05-08 17:02] LABS: BF MACROPHAGE 20; BF NEUTROPHILS 0
[2017-05-08 20:08] VITALS: BP 128/73
[2017-05-08 20:15] VITALS: BP 128/73
[2017-05-09 02:09] LABS: GLYCOHEMOGLOBIN (HGB A1C) 7.2 % (4.8-5.6)
[2017-05-09 03:35] VITALS: BP 161/71
[2017-05-09 03:48] LABS: ABSOLUTE NEUTROPHILS 5.3 thou/uL (1.4-8.2); BASOPHILS 1.2 % (0.0-2.0); EOSINOPHILS 7.1 % (0.0-3.0); HEMATOCRIT 31.5 % (42.0-52.0); HEMOGLOBIN 10.2 gm/dL (14.0-18.0); LYMPHOCYTES 14.4 % (24.0-44.0); MCH 28.4 pg (26.0-34.0); MCHC 32.5 g/dL (28.0-37.0); MCV 87.5 fL (80.0-100.0); MONOCYTES 6.1 % (1.0-8.0); PLATELET COUNT 232 thou/uL (150-400); POLYS 71.2 % (36.0-66.0); RDW 15.2 % (10.5-14.5); WBC 7.4 thou/uL (4.0-11.0)
[2017-05-09 04:07] LABS: CALCIUM 7.8 mg/dL (8.5-10.1); CREATININE 2.8 mg/dL (0.7-1.3); POTASSIUM 4.5 mmol/L (3.5-5.1)
[2017-05-09 07:35] VITALS: BP 150/39
[2017-05-09 09:30] LABS: CLARITY SLIGHTLY CLOUDY; COLOR YELLOW; SOURCE LEFT CHEST; TOTAL VOLUME 60 mL
[2017-05-09 10:42] LABS: BF RBC 300
[2017-05-09 10:43] LABS: BF NUCLEATED CELLS 41
[2017-05-09 10:46] LABS: BF MACROPHAGE 30; BF NEUTROPHILS 0
[2017-05-09 11:09] LABS: C-PEPTIDE 0.1 ng/mL (1.1-4.4)
[2017-05-09 16:06] LABS: BODY FLUID ALBUMIN 1.3 g/dL (()); BODY FLUID AMYLASE 14 U/L (()); BODY FLUID GLUCOSE 158 mg/dL (()); BODY FLUID LDH 158 IU/L (()); BODY FLUID PROTEIN 2.3 g/dL (())
[2017-05-09 16:13] VITALS: BP 172/42
[2017-05-09 19:38] VITALS: BP 192/53
[2017-05-09 20:40] VITALS: BP 147/50
[2017-05-10 00:24] VITALS: BP 138/51
[2017-05-10 04:22] VITALS: BP 166/51
[2017-05-10 08:00] VITALS: BP 178/50
[2017-05-10 16:00] VITALS: BP 173/54
[2017-05-10 20:40] VITALS: BP 176/56
[2017-05-10 23:50] VITALS: BP 136/44
[2017-05-11 04:44] VITALS: BP 172/46
[2017-05-11 10:45] VITALS: BP 155/56
[2017-05-11] MEDS ORDERED: DEMADEX 2020 MG/1 TA PO (14:01)
[2017-05-11] MEDS ORDERED: MUCINEX600 MG PO (14:01)
[2017-05-11] MEDS ORDERED: ACIDOPHILUS1 EAC4 PO (14:01)
[2017-05-11] MEDS ORDERED: ONDANSETRON HCL4 M1 IV PUSH (14:01)
[2017-05-11] MEDS ORDERED: GLUCAGON HCL1 MG SUBQ (14:01)
[2017-05-11] MEDS ORDERED: AMBIEN 5 MG TABL5 M1 PO (14:01)
[2017-05-11] MEDS ORDERED: NOVOLOG100 UNIT/1 SUBQ (14:01)
[2017-05-11] MEDS ORDERED: MIRALAX17 GM PO (14:01)
[2017-05-11 16:10] VITALS: BP 171/58
[2017-05-12 11:07] LABS: BODY FLUID ALBUMIN 1.1 g/dL (()); BODY FLUID AMYLASE 13 U/L (()); BODY FLUID GLUCOSE 316 mg/dL (()); BODY FLUID LDH 98 IU/L (()); BODY FLUID PROTEIN 2.2 g/dL (())
[2017-05-16 04:27] LABS: SOURCE THORACENTESIS
[2017-05-29] MEDS ORDERED: MUCINEX600 MG PO (08:02)
[2017-05-29] MEDS ORDERED: NOVOLOG100 UNIT/1 SUBQ (08:02)
[2017-05-29] MEDS ORDERED: VANCOMYCIN HCL10 GM PO (08:02)
[2017-05-29] MEDS ORDERED: VENTOLIN HFA 1818 GM INH (08:02)
[2017-05-29] MEDS ORDERED: NITROGLYCERIN0.4 MG SUBLING (08:02)
== END 2017-05-11 17:25 | DRG 637 ==
LOC: ER 06:59 → EROBS 08:37 → 4S 08:37 → ENTRNSPT 05-11 16:25 → 4S 05-11 17:25
PROVIDERS: Emergency Medicine; Hospitalist; Internal Medicine Endocrinology, Diabetes & Metabolism; Internal Medicine Nephrology; Internal Medicine Pulmonary Disease; Nurse Practitioner
PROC: 5A1D70Z Performance of Urinary Filtration, Intermittent, Less than 6 Hours Per Day (ICD-10-PCS; principal; 2017-05-04)
PROC: 0W993ZZ Drainage of Right Pleural Cavity, Percutaneous Approach (ICD-10-PCS; 2017-05-06)
PROC: 5A1D70Z Performance of Urinary Filtration, Intermittent, Less than 6 Hours Per Day (ICD-10-PCS; 2017-05-06)
PROC: 0W9B3ZZ Drainage of Left Pleural Cavity, Percutaneous Approach (ICD-10-PCS; 2017-05-06)
PROC: 5A1D70Z Performance of Urinary Filtration, Intermittent, Less than 6 Hours Per Day (ICD-10-PCS; 2017-05-08)
PROC: 0W993ZZ Drainage of Right Pleural Cavity, Percutaneous Approach (ICD-10-PCS; 2017-05-08)
PROC: 5A1D70Z Performance of Urinary Filtration, Intermittent, Less than 6 Hours Per Day (ICD-10-PCS; 2017-05-11)
DX: E10.10 Type 1 diabetes mellitus with ketoacidosis without coma (principal); J18.9 Pneumonia, unspecified organism; N18.6 End stage renal disease; J96.21 Acute and chronic respiratory failure with hypoxia; I50.33 Acute on chronic diastolic (congestive) heart failure; Z94.83 Pancreas transplant status; J90 Pleural effusion, not elsewhere classified; K92.1 Melena; I13.2 Hypertensive heart and chronic kidney disease with heart failure and with stage 5 chronic kidney disease, or end stage renal disease; Z94.0 Kidney transplant status; R53.81 Other malaise; E10.22 Type 1 diabetes mellitus with diabetic chronic kidney disease; D72.1 Eosinophilia; R19.7 Diarrhea, unspecified; I25.10 Atherosclerotic heart disease of native coronary artery without angina pectoris; E78.5 Hyperlipidemia, unspecified; E10.42 Type 1 diabetes mellitus with diabetic polyneuropathy; K21.9 Gastro-esophageal reflux disease without esophagitis; H54.8 Legal blindness, as defined in USA; Y95 Nosocomial condition; E10.43 Type 1 diabetes mellitus with diabetic autonomic (poly)neuropathy; K31.84 Gastroparesis; D63.1 Anemia in chronic kidney disease; Z88.6 Allergy status to analgesic agent; Z90.49 Acquired absence of other specified parts of digestive tract; Z99.2 Dependence on renal dialysis; Z86.73 Personal history of transient ischemic attack (TIA), and cerebral infarction without residual deficits; Z95.820 Peripheral vascular angioplasty status with implants and grafts; Z89.422 Acquired absence of other left toe(s); Z89.421 Acquired absence of other right toe(s); Z79.4 Long term (current) use of insulin; Z79.899 Other long term (current) drug therapy
CPT/HCPCS: 10100; 32100

== ENCOUNTER 2017-05-08 16:34 | Inpatient (IN) | payer OTHER, MEDICARE ==
[~2017-05-08] VITALS: Ht 193 cm; Wt 84.8 kg
--- NOTE | ~2017-05-08 | CNG ---
[facility] [address] [place] [address] CYTO-NONGYN REPORT PROCEDURE Name: ROSALINO MICHAUD Room #: 516-1 ADM IN M.R.#: [id number] Admission: 05/11/17 Date of : 47 Discharge: Report #: [id number] Path Case #: [id number] CYTOPATHOLOGY REPORT COLLECTION DATE: 05/18/2017 RECEIVED DATE: 05/18/2017 SUBMITTING PHYS: Dr. Tahir Vargas OTHER PHYS: Dr. Ivan Powers CLINICAL HISTORY: Multifactoral encephalopathy SPECIMEN(S) RECEIVED: A.Pleural fluid * * * * * * * * * * * * FINAL DIAGNOSIS: A. Pleural fluid: - No malignant epithelial cells identified. Few mesothelial cells along with moderate acute and chronic inflammation present. PATHOLOGIST: Shirley Mattson M.D. REPORT ELECTRONICALLY SIGNED BY: Shirley Mattson M.D. DATE/TIME: 05/19/2017 11:28 * * * * * * * * * * * * GROSS PATHOLOGY: A. Pleural fluid: The specimen is submitted unfixed, labeled "Rosalino Michaud". Received by the Cytology Department is 33 mL of cloudy yellow fluid. One ThinPrep slide and a formalin fixed cell block were prepared. (mm 05.18.2017) INTELLECTUAL PROPERTY PARALEGAL(S): ANGELIQUE Bose(ASCP)IAC INITIAL CPT CODE(S): A; 29733, 62910 Professional services performed by [facility] at [place] [address], [place] [address] Technical services performed by [facility] at [address] [place] [address]., [address], [place] [address]. [facility] [address] [place] [address], [address] [place] [address] PHONE: [phone] [facility] [address] [place] [address] CYTO-NONGYN REPORT PROCEDURE Name: ROSALINO MICHAUD Room #: 516-1 ADM IN M.R.#: [id number] Admission: 05/11/17 Date of : 47 Discharge: Report #: [id number] Path Case #: [id number] DIRECTOR: Wilmer Jc M.D. * * * END OF REPORT * * *
--- NOTE | ~2017-05-08 | PLAN ---
[facility] [place] [address] REHAB UNIT PLAN OF CARE Name: MANGO MICHAUD Deepika Room #: 516-1 ADM IN M.R.#: [id number] Admission: 05/11/17 Attend Phys: Tahir Vargas MD Discharge: Date of : 47 Report #: [id number] THIS REPORT FOR: //name// CC: Tahir Vargas [facility] physician/PCP DATE OF SERVICE: 05/13/2017 PROGRESS NOTE AND OVERALL PLAN OF CARE The patient is seen back today in followup. He is in no distress. Temperature 36.3, pulse 83, respirations 18, and blood pressure 118/50. He has been working in therapies with transfers, max assist. He is ambulating 12 feet, paralumbar is mod assist. Lower body dressing is mod assist. Comprehension is mild. ASSESSMENT: 1. Multifactorial encephalopathy. 2. Medical complexity with generalized debilitation. 3. Acute on chronic respiratory failure. 4. Bilateral pleural effusion, status post recent thoracentesis. 5. Uncontrolled diabetes mellitus. 6. History of hematochezia with hemoglobin being monitored. 7. End-stage renal disease, on hemodialysis. 8. Failed prior kidney and pancreas transplant. 9. History of congestive heart failure. 10. Past history of stroke with some residual left-sided weakness. 11. Peripheral neuropathy with distal lower extremity weakness and numbness. 12. Decreased vision. 13. Toe amputations. 14. Insulin-dependent diabetes mellitus. PLAN: The overall plan of care is based on the preadmission screen, post-admission physician evaluation and information garnered from therapy assessments. 1. Estimated length of stay is probably at least the next 2-1/2 to 3 weeks pending progress and potentially longer as warranted. He is at a lower level. 2. Medical prognosis is reasonably good. 3. Anticipated interventions includes the interdisciplinary acute inpatient rehabilitation program with goal of maximizing his functional independence, so he can hopefully return back to his prior living situation. We will have PT, OT, speech therapy, rehab nursing assisting regarding medication management, skin care prophylaxis, bowel and bladder issues, and nursing education. We will have the multiple market consultant physicians continue to follow. 4. Anticipated functional outcomes would be for the patient to become modified independent with transfers, mobility, and ADLs and cognition, so he can return back to the home setting. [place] [id number] REHAB UNIT PLAN OF CARE Name: JASWANTMANGO Room #: 516-1 [facility] IN .R.#: [id number] Admission: 05/11/17 Attend Phys: Tahir Vargas MD Discharge: Date of : 47 Report #: [id number] 5. Discharge destination would be back home with his . 6. Expected therapy by discipline includes PT and OT and speech 1 hour per day each five days a week throughout the duration of the acute inpatient rotation stay. <ELECTRONICALLY SIGNED> By: Tahir Vargas MD 05/19/17 1510 0806 0101 Tahir Vargas MD /SAMANTHA
--- NOTE | ~2017-05-08 | H ---
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 He had a right thoracentesis with 1300 mL fluid on 05/06/2017. Had another right thoracentesis with 1650 mL removed on 05/08/2017 and on 05/09/2017, he had a left thoracentesis of approximately 1500 mL. He is being closely monitored by Pulmonary as well as Nephrology, Endocrinology, and Internal Medicine. He has had some cognitive deficits that are thought to be gradually improving. He has definite functional mobility and ADL deficits with medical complexity with generalized debilitation. He is now being admitted for acute in-hospital inpatient rehabilitation. PAST MEDICAL HISTORY: Includes kidney and pancreas transplant in 2003 with subsequent rejection. He had a kidney transplant in 1996 and pancreas transplant in 2003. History of back surgery L4-L5 in 2013, history of peripheral neuropathy, hypertension, hyperlipidemia, amputation of the right fourth and fifth toes and left amputation of the fifth toe, GERD. He has had the prior stroke as noted above, blind right eye, cholecystectomy. ALLERGIES: HYDROCODONE AND CODEINE. HABITS: No history of tobacco or alcohol abuse. SOCIAL HISTORY: Lives in a house with his , 2 steps to enter. There is a stair glide to the second level. He utilized a front-wheeled walker to ambulate around the house 20-50 feet. There is noted to be a walk-in bathroom and shower. The patient's spouse is closely involved. She apparently works and he is away at dialysis Thursday, Thursday and Thursday when she is at work and then he is home by himself using the walker on Tuesdays and . REVIEW OF SYSTEMS: No current complaints of chest pain, shortness of breath, or abdominal discomfort. He has the premorbid blindness and has a peripheral neuropathy. PHYSICAL EXAMINATION: [facility] [address] [place] [address] HISTORY AND PHYSICAL Name: MANGO MICHAUD Room #: 516-1 [facility] IN [facility]#: [id number] Admission: 05/11/17 Attend Phys: Tahir Vargas MD Discharge: Date of : 47 Report #: [id number] GENERAL: The patient was seen earlier in no obvious distress. VITAL SIGNS: Last recorded temperature 98.2, pulse 86, respirations 20, blood pressure 147/73. HEENT: Facies noted to be symmetric. CHEST: Some decreased breath sounds throughout. He does have the thoracentesis site appears to be intact. CARDIOVASCULAR: Sounded regular rate and rhythm. ABDOMEN: Bowel sounds positive, nontender. GENITOURINARY AND RECTAL: Deferred. NEUROLOGIC: Functional range of motion of both upper extremities with strength grade 4-/5. DTRs are trace to 1. Lower extremity, he has the prior toe amputation. He has the decreased sensation in a stocking distribution with strength of the lower extremities grade 3+ to 4-/5 proximally and 3-3+ distally. He is needing considerable assistance with basic transfers. Currently, max assist. There is some cognitive delay in his responses, but he does follow basic 1 step commands. ASSESSMENT: A 71-year-old white male with the following problem list: 1. Multifactorial encephalopathy that appears to be improving. 2. Medical complexity with generalized debilitation. 3. Acute on chronic respiratory failure. 4. Bilateral pleural effusions, status post recent thoracenteses. 5. Uncontrolled diabetes mellitus, initially with blood sugars in the 700s. 6. History of hematochezia with hemoglobin being monitored. 7. End-stage renal disease, on hemodialysis. 8. Failed prior kidney and pancreas transplant. 9. History of congestive heart failure. 10. Past history of a stroke with some residual left-sided weakness. 11. Peripheral neuropathy with distal lower extremity weakness and numbness. 12. Decreased vision, essentially blind from retinopathy. 13. Toe amputations. 14. Insulin-dependent diabetes mellitus. PLAN: The patient is admitted for acute in-hospital inpatient rehabilitation. From a postadmission physician evaluation perspective, there are no relevant changes since the preadmission screening. Please see the above review of prior and current medical and functional conditions and comorbidities. Please see the patient's previous and current functional status. As far as risk of complications, the patient has multiple medical comorbidities as noted above. Initial plan of care involves the interdisciplinary acute inpatient rehabilitation program with goal of maximizing the patient's functional independence, so that he can hopefully return back to his prior living situation. Measurable functional goals would be for him to become modified independent with transfers, mobility and ADLs that he can hopefully return back to his prior living situation. Prognosis is reasonably good with estimated length of stay probably at least 3 weeks and potentially longer as needed as he [address] [address] HISTORY AND PHYSICAL Name: MANGO MICHAUD Room #: 516-1 ADM IN M.R.#: [id number] Admission: 05/11/17 Attend Phys: Tahir Vargas MD Discharge: Date of : 47 Report #: [id number] is at a lower level functionally. Potential barriers would include his multiple medical comorbidities and decreased functional status. The patient meets diagnostic criteria for an acute in-hospital inpatient rehabilitation stay. He meets medical necessity criteria and we will have the multiple product consultant physicians continue to follow while he is on the acute rehab mora. He does have the tolerance for therapies and has appropriate discharge goals back to the home setting. ADDENDUM: Wound care is to follow regarding his left and right great toes, which have been cleansed and Aquacel applied. Endocrinology will continue to be closely involved with his diabetes regimen. He will be on a low endurance program with his dialysis. <ELECTRONICALLY SIGNED> By: Tahir Vargas MD 05/19/17 1510 0841 [id number] Tahir Vargas MD /[facility]
--- NOTE | ~2017-05-08 | HC ---
[facility] [place] [address] CONSULTATION Name: MANGO MICHAUD Room #: 516-1 ADM IN M.R.#: [id number] Admission: 05/11/17 Attend Phys: Tahir Vargas MD Discharge: Date of : 47 Report #: [id number] THIS REPORT FOR: //name// CC: Tahir Vargas [facility] physician/PCP DATE OF SERVICE: 05/13/2017 ATTENDING PHYSICIAN: Tahir Vargas MD FLASK FITTER: Ric Calderon PhD CLINICAL PRESENTATION: The patient is a 71-year-old male admitted to [facility] rehabilitation unit for a comprehensive inpatient rehabilitation program to improve functional mobility, activities of daily living and self-care and mental status secondary to deficits from multifactorial encephalopathy. His assessment on admission includes medical complexity with generalized debility, acute on chronic respiratory failure, bilateral pleural effusions, status post recent thoracentesis, uncontrolled diabetes mellitus initially with blood sugars in the 700s, history of hematochezia with hemoglobin being monitored, end-stage renal disease on hemodialysis, failed prior kidney and pancreas transplant, history of congestive heart failure, past history of stroke with residual left hemiparesis, peripheral neuropathy with distal lower extremity weakness and numbness, decreased vision essentially blind from retinopathy, toe amputations and insulin-dependent diabetes mellitus. A complete description of his medical condition and history can be found in his medical records. Neuropsychological consultation was requested to provide assistance in the assessment of cognitive and emotional status and to provide recommendations and services. Prior to this most recent medical event, he was living with the assistance of his in their home. The patient has 4 children. This is his second marriage. 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 He is a high school graduate with additional 2 years of course work toward an associate of arts degree. There is no reported prior history of treatment for anxiety or depression. His is assertive and very attentive to his needs. TECHNIQUES UTILIZED: Clinical interview, review of medical records, staff consultation and behavioral observation, family interview -- and daughter, mini mental status exam 2 standard version (subtest), brief abstract reasoning assessment and category fluency. EXAMINATION FINDINGS: The patient was alert and cooperative with the assessment. He accurately described the reason for his hospitalization. There is no evidence of aphasia. He does not report auditory or visual hallucinations. There is no evidence of thought disorder. He described his [facility] [address] [place] [address] CONSULTATION Name: JASWANTMANGO Room #: 516-1 [facility] IN M.R.#: [id number] Admission: 05/11/17 Attend Phys: Tahir Vargas MD Discharge: Date of : 47 Report #: [id number] symptoms to mainly involve tiredness and fatigue. He does not report difficulty with memory or verbal fluency. His indicates an improvement in his cognitive functioning, but does not feel like it is back to normal. She does recognize his symptoms as a result of the encephalopathy as much improved in comparison to his prior admission to rehab. His performance on the MMSE 2 brief version is extremely low with a raw score of 10 of 16. He was 3/3 for initial registration, 4/5 for orientation to time, 3/[address] and 0/3 for immediate recall of 3 items after a brief time delay and distraction. However, recognition memory of 3 items was within normal limits. The patient had recently transferred [facility] to [facility], which took him from [facility]. He was likely just uncertain of the aspects of his current location. Visual deficits also will interfere with orientation to place. Performance on the MMSE 2 standard version was extremely low with a raw score of 18/30. He was 1/5 for serial sevens, 2/2 for naming, 1/1 for repetition and 3/3 for auditory comprehension. He could read and follow a single command. Deficits in visually mediated processing as a result of the blindness would likely have contributed to decreased ability to copying that was a result of vision. However, it should be noted that he was able to read and follow single command when it was within his visual field. Category fluency was within normal limits with a raw score of 15 and a T score of 43. Brief abstract reasoning test was 5/8 suggesting a mild impairment. The patient appears to be improving in regard to orientation. Initial registration and focused attention are within functional limits. However, he is still experiencing some deficits in immediate recall, impairment and sustained attention and concentration. DIAGNOSTIC IMPRESSION: Delirium -- resolved. 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 Unspecified anxiety disorder. RECOMMENDATIONS: The patient will require strategies that are associated wtih accommodations for low vision and hearing deficits. Therapists, nurses and health care team should introduce themselves and increase his alertness to procedures will help lessen his anxiety and improve his overall compliance. His functioning will likely be improved when in a more familiar environment in which visual and environmental barriers will be less of an interference. [facility] [address] [place] [address] CONSULTATION Name: MANGO MICHAUD Room #: 516-1 ADM IN M.R.#: [id number] Admission: 05/11/17 Attend Phys: Tahir Vargas MD Discharge: Date of : 47 Report #: [id number] He may benefit from a followup neuropsych assessment as an outpatient to clarify cognitive status. Diabetes and variability in kidney function often can have an impact on neurocognitive functioning. Increased supervision and structure will likely be necessary upon discharge in order for him to maintain safety. Initial 24-hour care will likely be necessary to improve his ability to reorient to a home environment as well as monitor his ability to live independently with his absent. Thank you very much for allowing me to provide the consultation on this patient. <ELECTRONICALLY SIGNED> By: Ric Calderon, PhD 05/18/17 1823 [id number] Ric Calderon, PhD /nt
--- NOTE | ~2017-05-08 | CNG ---
[facility] [place] [address] CYTO-NONGYN REPORT PROCEDURE Name: ROSALINO MICHAUD Room #: 516-1 ADM IN M.R.#: [id number] Admission: 05/11/17 Date of : 47 Discharge: Report #: [id number] Path Case #: [id number] CYTOPATHOLOGY REPORT COLLECTION DATE: 05/09/2017 RECEIVED DATE: 05/11/2017 SUBMITTING PHYS: Dr. Radha Davenport OTHER PHYS: Dr. Tahir Damico CLINICAL HISTORY: Hyperglycemia, recent multifactorial encephalopathy SPECIMEN(S) RECEIVED: A.Pleural fluid * * * * * * * * * * * * FINAL DIAGNOSIS: A. Pleural fluid: - No malignant epithelial cells identified. Mesothelial cells, acute and chronic inflammatory cells present. PATHOLOGIST: Shirley Mattson M.D. REPORT ELECTRONICALLY SIGNED BY: Shirley Mattson M.D. DATE/TIME: 05/12/2017 15:25 * * * * * * * * * * * * GROSS PATHOLOGY: A. Pleural fluid: The specimen is submitted unfixed, labeled "Rosalino Michaud". Received by the Cytology Department is 28 mL of clear yellow fluid. One ThinPrep slide and a formalin fixed cell block were prepared. (lg05.11.2017) NUMBERER AND WIRER(S): ANGELIQUE Valdez([facility]) INITIAL CPT CODE(S): A; 72393, 19287 Professional services performed by [facility] at [facility] [address], [place] [address] Technical services performed by [facility] at [address] [place] [address]., [address], [place] [address]. [facility] [address] [place] [address], [facility] [address] [place], [place] [address] [place] [address] [place] [address] CYTO-NONGYN REPORT PROCEDURE Name: ROSALINO MICHAUD Room #: 516-1 ADM IN M.R.#: [id number] Admission: 05/11/17 Date of : 47 Discharge: Report #: [id number] Path Case #: [id number] PHONE: [phone] DIRECTOR: Wilmer Jc M.D. * * * END OF REPORT * * *
[~2017-05-08 16:34] MED LIST changes: +ACCUNEB SO1.25 MG/1 INH; +BENADRYL25 MG IV; +CLARITIN-D 12 H1 TA2 PO; +DIPHENHIST50 MG IV; +HEPARIN 1,1000 UNIT/ IV; +LEVAQUIN 500 M500 M2 PO; +LEVEMIR100 UNIT/1 SUBQ; +NEOSPORIN + P28.3 GM TOP; +NEPHROCAPS SOFT1 CAP PO; +NITROGLYCERIN0.4 MG SUBLING; +PROTONIX40 M1 PO; +SENNA PLUS TAB1 EACH PO; +SSD CREAM 1% 5050 GM TOP; +TYLENOL325 MG PO
[2017-05-11] MEDS ORDERED: NOVOLOG100 UNIT/1 SUBQ ×2 (14:01)
[2017-05-11] MEDS ORDERED: GLUCAGON HCL1 MG SUBQ ×2 (14:01)
[2017-05-11] MEDS ORDERED: MIRALAX17 GM PO ×2 (14:01)
[2017-05-11] MEDS ORDERED: ACIDOPHILUS1 EAC4 PO ×2 (14:01)
[2017-05-11] MEDS ORDERED: MUCINEX600 MG PO ×2 (14:01)
[2017-05-11] MEDS ORDERED: ONDANSETRON HCL4 M1 IV PUSH ×2 (14:01)
[2017-05-11] MEDS ORDERED: DEMADEX 2020 MG/1 TA PO ×2 (14:01)
[2017-05-11] MEDS ORDERED: AMBIEN 5 MG TABL5 M1 PO ×2 (14:01)
[2017-05-11 17:30] VITALS: BP 150/65
[2017-05-11 19:52] VITALS: BP 147/73
[2017-05-12 08:15] VITALS: BP 102/39
[2017-05-12 19:50] VITALS: BP 119/50
[2017-05-13 06:26] LABS: ABSOLUTE NEUTROPHILS 4.6 thou/uL (1.4-8.2); BASOPHILS 1.4 % (0.0-2.0); EOSINOPHILS 9.8 % (0.0-3.0); HEMATOCRIT 30.7 % (42.0-52.0); HEMOGLOBIN 10.1 gm/dL (14.0-18.0); LYMPHOCYTES 15.9 % (24.0-44.0); MCH 28.5 pg (26.0-34.0); MCHC 32.8 g/dL (28.0-37.0); MONOCYTES 8.7 % (1.0-8.0); PLATELET COUNT 266 thou/uL (150-400); POLYS 64.2 % (36.0-66.0); RBC 3.53 mil/uL (4.50-6.00); RDW 15.3 % (10.5-14.5); WBC 7.2 thou/uL (4.0-11.0)
[2017-05-13 06:31] LABS: CALCIUM 7.9 mg/dL (8.5-10.1); CREATININE 3.1 mg/dL (0.7-1.3); POTASSIUM 4.2 mmol/L (3.5-5.1)
[2017-05-13 08:30] VITALS: BP 111/65
[2017-05-13 19:23] VITALS: BP 160/72
[2017-05-14 08:15] VITALS: BP 137/71
[2017-05-15 07:45] VITALS: BP 135/53
[2017-05-15 08:30] VITALS: BP 134/73
[2017-05-15 09:30] VITALS: BP 120/50
[2017-05-15 10:00] VITALS: BP 123/48
[2017-05-15 20:34] VITALS: BP 122/50
[2017-05-16 08:00] VITALS: BP 167/38
[2017-05-16 19:34] VITALS: BP 151/63
[2017-05-17 09:30] VITALS: BP 139/48
[2017-05-17 19:45] VITALS: BP 142/70
[2017-05-18 08:30] VITALS: BP 169/71
[2017-05-18 09:34] LABS: PROTIME 10.6 Seconds (9.3-11.4)
[2017-05-18 11:06] LABS: CLARITY TURBID; COLOR RED; SOURCE RIGHT CHEST; TOTAL VOLUME 63 mL
[2017-05-18 11:07] LABS: SOURCE RIGHT CHEST
[2017-05-18 11:17] LABS: BF NUCLEATED CELLS 649
[2017-05-18 12:18] LABS: BF NEUTROPHILS 47
[2017-05-18 12:19] LABS: BF COMMENTS MONOCYTES; BF MACROPHAGE 2
[2017-05-18 19:08] VITALS: BP 156/60
[2017-05-19 07:14] LABS: ABSOLUTE NEUTROPHILS 4.3 thou/uL (1.4-8.2); BASOPHILS 0.8 % (0.0-2.0); EOSINOPHILS 10.1 % (0.0-3.0); HEMOGLOBIN 9.8 gm/dL (14.0-18.0); LYMPHOCYTES 13.2 % (24.0-44.0); MCH 28.3 pg (26.0-34.0); MCHC 32.6 g/dL (28.0-37.0); MCV 86.9 fL (80.0-100.0); MONOCYTES 10.2 % (1.0-8.0); PLATELET COUNT 322 thou/uL (150-400); POLYS 65.7 % (36.0-66.0); RBC 3.45 mil/uL (4.50-6.00); RDW 15.5 % (10.5-14.5); WBC 6.5 thou/uL (4.0-11.0)
[2017-05-19 07:22] LABS: CALCIUM 8.1 mg/dL (8.5-10.1); CREATININE 4.8 mg/dL (0.7-1.3); POTASSIUM 4.8 mmol/L (3.5-5.1)
[2017-05-19 08:25] VITALS: BP 120/70
[2017-05-19 10:13] LABS: BODY FLUID ALBUMIN 1.4 g/dL (()); BODY FLUID AMYLASE 19 U/L (()); BODY FLUID GLUCOSE 171 mg/dL (()); BODY FLUID LDH 171 IU/L (()); BODY FLUID PROTEIN 2.7 g/dL (())
[2017-05-19 19:20] VITALS: BP 162/74
[2017-05-20 07:40] VITALS: BP 147/58
[2017-05-20 20:45] VITALS: BP 180/89
[2017-05-21 07:10] VITALS: BP 155/78
[2017-05-21 19:45] VITALS: BP 145/57
[2017-05-22 05:12] LABS: HEP B SURFACE Ab(ANTI-HBS Reactive (()); HEPATITIS B SURFACE AG Negative (Negative)
[2017-05-22 07:47] VITALS: BP 116/36
[2017-05-22 20:00] VITALS: BP 180/81
[2017-05-23 09:00] VITALS: BP 150/80
[2017-05-24 02:34] VITALS: BP 115/78
[2017-05-24 10:30] VITALS: BP 136/69
[2017-05-24 20:23] VITALS: BP 177/91
[2017-05-25 08:00] VITALS: BP 150/70
[2017-05-25 20:00] VITALS: BP 162/92
[2017-05-25 20:25] VITALS: BP 162/92
[2017-05-26 08:00] VITALS: BP 143/63
[2017-05-26 19:16] VITALS: BP 160/80
[2017-05-27 09:00] VITALS: BP 143/66
[2017-05-27 20:00] VITALS: BP 157/66
[2017-05-28 07:24] LABS: ABSOLUTE NEUTROPHILS 6.1 thou/uL (1.4-8.2); BASOPHILS 1.1 % (0.0-2.0); EOSINOPHILS 3.6 % (0.0-3.0); HEMATOCRIT 29.3 % (42.0-52.0); HEMOGLOBIN 9.7 gm/dL (14.0-18.0); LYMPHOCYTES 11.4 % (24.0-44.0); MCH 28.9 pg (26.0-34.0); MCHC 33.2 g/dL (28.0-37.0); MCV 87.1 fL (80.0-100.0); MONOCYTES 7.4 % (1.0-8.0); PLATELET COUNT 428 thou/uL (150-400); POLYS 76.5 % (36.0-66.0); RBC 3.36 mil/uL (4.50-6.00); RDW 15.5 % (10.5-14.5)
[2017-05-28 07:35] LABS: CALCIUM 8.7 mg/dL (8.5-10.1); CREATININE 4.3 mg/dL (0.7-1.3)
[2017-05-28 09:00] VITALS: BP 123/70
[2017-05-28 14:25] VITALS: BP 123/70
[2017-05-28 20:00] VITALS: BP 174/71
[2017-05-29] MEDS ORDERED: VANCOMYCIN HCL10 GM PO ×2 (08:02)
[2017-05-29] MEDS ORDERED: MUCINEX600 MG PO ×2 (08:02)
[2017-05-29] MEDS ORDERED: VENTOLIN HFA 1818 GM INH ×2 (08:02)
[2017-05-29] MEDS ORDERED: NOVOLOG100 UNIT/1 SUBQ ×2 (08:02)
[2017-05-29] MEDS ORDERED: NITROGLYCERIN0.4 MG SUBLING ×2 (08:02)
[2017-05-29 10:18] VITALS: BP 123/70
[2017-05-29 14:04] VITALS: BP 123/70
[2017-05-29 14:05] VITALS: BP 123/70
== END 2017-05-29 15:44 | disposition home health service (06) | DRG 70 ==
PROVIDERS: Hospitalist; Internal Medicine Endocrinology, Diabetes & Metabolism; Internal Medicine Pulmonary Disease; Nurse Practitioner; Radiology Diagnostic Radiology
PROC: 5A1D70Z Performance of Urinary Filtration, Intermittent, Less than 6 Hours Per Day (ICD-10-PCS; 2017-05-12)
PROC: 5A1D70Z Performance of Urinary Filtration, Intermittent, Less than 6 Hours Per Day (ICD-10-PCS; 2017-05-13)
PROC: 5A1D70Z Performance of Urinary Filtration, Intermittent, Less than 6 Hours Per Day (ICD-10-PCS; 2017-05-15)
PROC: 5A1D70Z Performance of Urinary Filtration, Intermittent, Less than 6 Hours Per Day (ICD-10-PCS; 2017-05-16)
PROC: 0W993ZX Drainage of Right Pleural Cavity, Percutaneous Approach, Diagnostic (ICD-10-PCS; principal; 2017-05-18)
PROC: 5A1D80Z Performance of Urinary Filtration, Prolonged Intermittent, 6-18 hours Per Day (ICD-10-PCS; 2017-05-19)
PROC: 5A1D70Z Performance of Urinary Filtration, Intermittent, Less than 6 Hours Per Day (ICD-10-PCS; 2017-05-21)
PROC: 5A1D70Z Performance of Urinary Filtration, Intermittent, Less than 6 Hours Per Day (ICD-10-PCS; 2017-05-23)
PROC: 5A1D70Z Performance of Urinary Filtration, Intermittent, Less than 6 Hours Per Day (ICD-10-PCS; 2017-05-25)
PROC: 5A1D70Z Performance of Urinary Filtration, Intermittent, Less than 6 Hours Per Day (ICD-10-PCS; 2017-05-27)
DX: G93.40 Encephalopathy, unspecified (principal); N18.6 End stage renal disease; J96.21 Acute and chronic respiratory failure with hypoxia; I13.2 Hypertensive heart and chronic kidney disease with heart failure and with stage 5 chronic kidney disease, or end stage renal disease; J90 Pleural effusion, not elsewhere classified; Z94.0 Kidney transplant status; Z94.83 Pancreas transplant status; I50.30 Unspecified diastolic (congestive) heart failure; J93.9 Pneumothorax, unspecified; E78.5 Hyperlipidemia, unspecified; K21.9 Gastro-esophageal reflux disease without esophagitis; R53.81 Other malaise; D72.1 Eosinophilia; I48.91 Unspecified atrial fibrillation; I25.10 Atherosclerotic heart disease of native coronary artery without angina pectoris; R41.9 Unspecified symptoms and signs involving cognitive functions and awareness; F41.9 Anxiety disorder, unspecified; E87.70 Fluid overload, unspecified; H54.8 Legal blindness, as defined in USA; R13.10 Dysphagia, unspecified; B96.89 Other specified bacterial agents as the cause of diseases classified elsewhere; E10.42 Type 1 diabetes mellitus with diabetic polyneuropathy; E10.319 Type 1 diabetes mellitus with unspecified diabetic retinopathy without macular edema; E10.65 Type 1 diabetes mellitus with hyperglycemia; E10.22 Type 1 diabetes mellitus with diabetic chronic kidney disease; Z99.2 Dependence on renal dialysis; Z89.422 Acquired absence of other left toe(s); Z89.421 Acquired absence of other right toe(s); Z90.49 Acquired absence of other specified parts of digestive tract; Z86.73 Personal history of transient ischemic attack (TIA), and cerebral infarction without residual deficits; Z88.6 Allergy status to analgesic agent; Z79.4 Long term (current) use of insulin
CPT/HCPCS: 10112; 32100

== ENCOUNTER → 2017-06-02 | Outpatient (CLI) | payer OTHER, MEDICARE ==
[~2017-06-02] MED LIST changes: +ACIDOPHILUS1 EAC4 PO; +AMBIEN 5 MG TABL5 M1 PO; +DEMADEX 2020 MG/1 TA PO; +GLUCAGON HCL1 MG SUBQ; +MIRALAX17 GM PO; +MUCINEX600 MG PO; +ONDANSETRON HCL4 M1 IV PUSH; +VANCOMYCIN HCL10 GM PO; +VENTOLIN HFA 1818 GM INH
== END ==
LOC: RAD 10:16
DX: J90 Pleural effusion, not elsewhere classified (principal); J98.11 Atelectasis; M47.894 Other spondylosis, thoracic region

== ENCOUNTER 2017-06-06 13:13 | Inpatient (IN) | payer OTHER, MEDICARE ==
[2017-06-06] VITALS (34 sets, daily range): BP systolic 111–170; BP diastolic 61–99
[~2017-06-06] VITALS: Ht 193 cm; Wt 69.0 kg
--- NOTE | ~2017-06-06 | CNG ---
[facility] [place] [address] CYTO-NONGYN REPORT PROCEDURE Name: ROSALINO MICHAUD Room #: 247-P ADM IN M.R.#: [id number] Admission: 06/06/17 Date of : 47 Discharge: Report #: [id number] Path Case #: [id number] CYTOPATHOLOGY REPORT COLLECTION DATE: 06/06/2017 RECEIVED DATE: 06/08/2017 SUBMITTING PHYS: Dr. Radha Davenport OTHER PHYS: Dr. Rigoberto Arrington CLINICAL HISTORY: Bilateral pleural. SPECIMEN(S) RECEIVED: A.Pleural fluid * * * * * * * * * * * * FINAL DIAGNOSIS: A. Pleural fluid: - No malignant epithelial cells identified. - Reactive mesothelial cells and acute and chronic inflammatory cells identified. PATHOLOGIST: Paris Berry M.D. REPORT ELECTRONICALLY SIGNED BY: Paris Berry M.D. DATE/TIME: 06/09/2017 13:57 * * * * * * * * * * * * GROSS PATHOLOGY: A. Pleural fluid: The specimen is submitted unfixed, labeled "MikelRosalino". Received by the Cytology Department is 25 mL of cloudy yellow fluid. One ThinPrep slide and a formalin fixed cell block were prepared. (clt 06.08.2017) MAT MACHINE OPERATOR(S): ANGELIQUE Matute([facility]) INITIAL CPT CODE(S): A; 55879, 22671 Professional services performed by [facility] at [facility] [address], [place] [address] Technical services performed by [facility] at [address] [place] [address]., [address], [place] [address]. [facility] [address] [place] [address], [facility] [address] [place] [address] PHONE: [phone] [facility] [address] [place] [address] CYTO-NONGYN REPORT PROCEDURE Name: ROSALINO MICHAUD Room #: 247-P ADM IN M.R.#: [id number] Admission: 06/06/17 Date of : 47 Discharge: Report #: [id number] Path Case #: [id number] DIRECTOR: Wilmer Jc M.D. * * * END OF REPORT * * *
--- NOTE | ~2017-06-06 | CNG ---
[facility] [place] [address] CYTO-NONGYN REPORT PROCEDURE Name: ROSALINO MICHAUD Room #: 247-P ADM IN M.R.#: [id number] Admission: 06/06/17 Date of : 47 Discharge: Report #: [id number] Path Case #: [id number] CYTOPATHOLOGY REPORT COLLECTION DATE: 06/10/2017 RECEIVED DATE: 06/10/2017 SUBMITTING PHYS: Dr. Rigoberto Arrington OTHER PHYS: Dr. Radha Davenport CLINICAL HISTORY: Respiratory failure, Left pneumothorax SPECIMEN(S) RECEIVED: A.Pleural fluid * * * * * * * * * * * * FINAL DIAGNOSIS: A. Pleural fluid: - No malignant epithelial cells identified. Reactive mesothelial cells and predominately chronic inflammatory cells identified. PATHOLOGIST: Paris Berry M.D. REPORT ELECTRONICALLY SIGNED BY: Paris Berry M.D. DATE/TIME: 06/11/2017 12:47 * * * * * * * * * * * * GROSS PATHOLOGY: A. Pleural fluid: The specimen is submitted unfixed, labeled "MikelRosalino". Received by the Cytology Department is 37 mL of cloudy yellow fluid. One ThinPrep slide and a formalin fixed cell block were prepared. (mm 06.10.2017) CARPENTER HELPER(S): ANGELIQUE Sargent([facility]) INITIAL CPT CODE(S): A; 85482, 88333 Professional services performed by [facility] at [facility] [address], [place] [address] Technical services performed by [facility] at [address] [place] [address]., [address], [place] [address]. [facility] [address] [place] [address], [facility] [address] [place] [address] PHONE: [phone] [facility] [address] [place] [address] CYTO-NONGYN REPORT PROCEDURE Name: ROSALINO MICHAUD Room #: 247-P ADM IN M.R.#: [id number] Admission: 06/06/17 Date of : 47 Discharge: Report #: [id number] Path Case #: [id number] DIRECTOR: Wilmer Jc M.D. * * * END OF REPORT * * *
--- NOTE | ~2017-06-06 | HC ---
[facility] [place] [address] CONSULTATION Name: MANGO MICHAUD Room #: 247-P [facility] IN ..#: [id number] Admission: 06/06/17 Attend Phys: Rigoberto Arrington MD Discharge: 06/12/17 Date of : 47 Report #: [id number] THIS REPORT FOR: //name// CC: Radha RAMOS physician/PCP Noel Arrington DATE OF SERVICE: 06/06/2017 REASON FOR CONSULTATION: Respiratory failure. Forty minutes critical care time. IMPRESSION: 1. Acute on chronic respiratory failure. 2. Recurrent bilateral effusions. 3. End-stage renal disease. 4. Diabetes. 5. Acute systolic congestive heart failure. 6. Protein-calorie malnutrition. 7. History of cerebrovascular accident. 8. History of renal transplant. PLAN: 1. Thoracentesis. There is discussion of a PleurX catheter on right. We will need to follow up with this. Continued diuresis. 2. ICU protocol. 3. Followup echo on Thursday. HISTORY OF PRESENT ILLNESS: A 71-year-old male with history of end-stage renal disease, bilateral effusions, diabetes, comes in with increasing shortness of breath and fatigue, discharged from rehab, initially did well, had dialysis Thursday, Thursday and Thursday, had a chest x-ray on Thursday. Plan was to put in a PleurX catheter this coming Thursday; however, worsened and is being admitted for management. PAST MEDICAL HISTORY: ALLERGIES: TO HYDROCODONE, PROMETHAZINE, CODEINE. MEDICATIONS: Included Demadex, lactobacillus, vancomycin, guaifenesin, albuterol. PAST SURGICAL HISTORY: Include kidney pancreas transplant 1997; fistula, left arm; failed pancreas transplant in 2003; 2014 back surgery; stents right lower extremity x 2 in 2014; insulin pump; amputation, right fourth and fifth toe, [facility] [address] [place] [address] CONSULTATION Name: MANGO MICHAUD Room #: 247-P [facility] [id number] Admission: 06/06/17 Attend Phys: Rigoberto Arrington MD Discharge: 06/12/17 Date of : 47 Report #: [id number] left fifth toe; cholecystectomy. SOCIAL HISTORY: Negative tobacco, negative ETOH. Lives with . FAMILY HISTORY: Heart failure. REVIEW OF SYSTEMS: End-stage renal disease, TIA, back pain, peripheral vascular disease, diabetes, neuropathy, hypertension, hyperlipidemia, GERD, pleural effusions, depression, decreased vision. PHYSICAL EXAMINATION: VITAL SIGNS: Temperature 98.1, pulse 97, respirations 24, BP 170/80. EYES: Negative icterus. NECK: Negative JVD. LUNGS: Decreased breath sounds bilaterally. HEART: Regular. ABDOMEN: Bowel sounds present. EXTREMITIES: Showed trace edema. LABORATORY DATA: White count 75, hemoglobin 10.2, platelets 358. Chest shows bilateral infiltrates and effusions. BUN 26, creatinine 3.3. ProBNP 13,400, pH 7.285, pCO2 for 60, pO2 96 on 40%, , PEEP 8, pressure support 6. <ELECTRONICALLY SIGNED> By: Radha Davenport MD 06/18/17 1056 09 09 Radha Davenport MD /nt
--- NOTE | ~2017-06-06 | HC ---
[facility] [place] [address] CONSULTATION Name: MANGO MICHAUD Room #: 247-P [facility] IN ..#: [id number] Admission: 06/06/17 Attend Phys: Rigoberto Arrington MD Discharge: 06/12/17 Date of : 47 Report #: [id number] THIS REPORT FOR: //name// CC: Radha RAMOS physician/PCP Noel Arrington DATE OF SERVICE: 06/10/2017 HISTORY OF PRESENT ILLNESS: This is a 71-year-old male patient who was evaluated by me for somnolence and some stroke-like symptoms. This patient's history is pretty complicated. It looks like he had a stroke affecting the left side of the body a few years ago and he was in [facility]. I do not have any records from there. The tells me they found a large blockage in the right carotid artery. Around that time, he also was on anticoagulation, which was stopped to get something done. I do not have any of the record and this is all from the history. This patient made reasonably good recovery on the left side. He needed help from the , but at the time he was able to do most of his things by himself. He has developed numerous medical problems since then. Whenever he develops medical problems, his weakness on the left side becomes worst. The last time it happened was about a month ago. Then it spontaneously became better. He did have a CT scan of the head, but he did not have any MRI at that time. REVIEW OF SYSTEMS: Also positive for pulmonary problems at the moment. He has bilateral effusion. He has renal disease. He underwent dialysis yesterday. He is diabetic. He has a history of congestive heart failure, and as I mentioned, he has a history of cerebrovascular accident affecting the left side of the body. His problem is also there that his blood pressure is running low and is fluctuating. When I saw him, his blood pressure was running about 90 systolic. I carried out 14-point review of systems partly from the record, partly from the patient's ; the patient does not provide much history. He is being followed by multiple consultants. His blood sugars are poorly controlled. He had a history of kidney transplant. He also had volume overload. He had an attempt to have a pancreas transplant, which failed. tells me that he has pretty significant visual impairment because of diabetic retinopathy. PAST MEDICAL HISTORY: Positive for stroke. FAMILY HISTORY: Unremarkable. SOCIAL HISTORY: He lives with his who provided most of the history. PHYSICAL EXAMINATION: Examination is pretty limited. He is pretty drowsy, but he wakes up for a small amount of time, then he goes back to sleep. I cannot [facility] [address] [place] [address] CONSULTATION Name: JASWANTMANGO Room #: 247-P [facility] IN M.R.#: [id number] Admission: 06/06/17 Attend Phys: Rigoberto Arrington MD Discharge: 06/12/17 Date of : 47 Report #: [id number] tell about the memory testing because he does not stay awake long enough. Cranial nerve examination 2-12 was attempted and was very difficult to carry out because the patient has very poor vision. Neuromuscular examination was attempted, the patient barely moved his left upper extremity, but he did move the left lower extremity. Even in the lower extremity the movement was pretty minimal. He was not able to cooperate with sensory examination. He has a cardiac abnormality and he is being followed by electrician radio here. His respirations appear to be stable. His blood pressure is fluctuating according to the nurses and is running low, is running about 90 systolic. LABORATORY DATA: Indicate hemoglobin is somewhat low at 10.3. GFR is 14. He did have a CT scan of the head, which does not show any acute changes. According to the , he had an EEG about a month ago when he was in similar condition. IMPRESSION: This patient has either extended his stroke or the patient's penumbra has become nonfunctional because of multiple metabolic problems going on. If he does have a blockage in the right carotid artery, he is predisposed to extend his stroke with any low blood pressure because collaterals can collapse with the low blood pressure. He might also have impairment of the penumbra because of metabolic disturbances. I discussed with the family. Nurses tell me there has been a discussion about hospice. I did not raise that question with the family and we will let other sediment remediation consultant see how aggressive the family wants to be. I did talk to them that some time along the line it might be desirable to do an MRI in this patient. I do not know how long this patient's symptom is going on and how long he has been weak like he has been. It looks like it is a chronic process, but whether it became worse yesterday or day before I do not know. So therefore, even if he had a stroke, time of onset is not clear and probably days. Therefore, I do not think he is a candidate for any intervention, but it will be desirable to do an MRI in this patient when he is considered stable by other consultants. If he did have extension of his stroke or had strokes in other distribution that may help family decide how aggressive they want to be. As mentioned above, it is possible that this patient had an extension of his stroke. RECOMMENDATION: 1. I talked to the nurses and I suggested that they keep blood pressure high in conjunction with other consultants. That is not going to be an easy job. He has fluid overload, so he cannot get too much fluid and raising the blood pressure is going to be difficult, but can be attempted if possible. 2. Whenever other sediment remediation consultant feel comfortable, I will suggest getting an MRI done in this patient and if he is stable, then we can do the MRA of the head and neck at the same time, especially if he is able to cooperate. [facility] [address] [place] [address] CONSULTATION Name: MANGO MICHAUD Room #: [facility] IN ..#: [id number] Admission: 06/06/17 Attend Phys: Rigoberto Arrington MD Discharge: 06/12/17 Date of : 47 Report #: [id number] I discussed all of it with the patient's family in detail and they understand all this and want to follow this plan. <ELECTRONICALLY SIGNED> By: Ras Everett MD 06/18/17 1355 181 28 Ras Everett MD /nt
--- NOTE | ~2017-06-06 | EKG ---
[place] [address] [place] [address] ELECTROCARDIOGRAM REPORT Name: MANGO MICHAUD Room #: 247-P ADM IN M.R.#: [id number] Admission: 06/06/17 Attend Phys: Rigoberto Arrington MD Discharge: Date of : 47 Report #: [id number] THIS REPORT FOR: //name// [facility] ED Test Date: 2017-06-06 Test Time: 13:44:55 Pat Name: MANGO MICHAUD Department: Room: [facility] Gender: M Pewter Finisher: Miguel FLORES : 1945 Requested By: Paige Russell Order Number: [id number] MD: Clint Kelly Measurements Intervals [place] Rate: 92 P: 6 MT: 145 QRS: -53 QRSD: 156 T: 109 QT: 404 QTc: 500 Interpretive Statements Sinus rhythm Probable left atrial enlargement Right bundle branch block LVH with IVCD and secondary repol abnrm Borderline prolonged QT interval Compared to ECG 04/19/2017 11:36:00 No significant change was found Electronically Signed On 06-07-2017 13:44:57 CDT by Clint Kelly [email or web address] <ELECTRONICALLY SIGNED> By: Clint Kelly MD, [facility] 06/07/17 1344 1344 1344 Clint Kelly MD, [facility] /EPI
--- NOTE | ~2017-06-06 | HC ---
[facility] [place] [address] CONSULTATION Name: JASWANTMANGO Room #: 247-P [facility] IN ..#: [id number] Admission: 06/06/17 Attend Phys: Rigoberto Arrington MD Discharge: Date of : 47 Report #: [id number] THIS REPORT FOR: //name// CC: Radha RAMOS physician/PCP Noel Arrington DATE OF SERVICE: 06/06/2017 NEPHROLOGY CONSULTATION ATTENDING PHYSICIAN: Rigoberto Arrington MD REASON FOR CONSULTATION: Congestive heart failure, end-stage renal disease. HISTORY OF PRESENT ILLNESS: The patient is a very well known to our service. He has end-stage renal disease after failed renal transplant, has had quite a struggle with volume overload over the last several months with decreased left ventricular ejection fraction, limited ultrafiltration by the patient and his 's demand, volume overload and inability to stay away from salty food diet. He was hospitalized here between 05/04/2017 and 05/29/2017, underwent attempts at rehabilitation and strengthening, attempts at ultrafiltration dialysis, unfortunately little progress was made, now been home for 8 days where he has had progressive gain in his weight, volume overload, progressive shortness of breath. He has had recurrent right pleural effusions which have been drained in Radiology, most recent thoracentesis I believe was done on 05/18/2017 and he had another one scheduled coming up here in a few days. PAST MEDICAL HISTORY: Longstanding end-stage renal disease. He had a kidney transplant for some time. He has been back on dialysis over the last year or so, course punctuated by frequent admissions with the volume overload as we have mentioned above. He did have a pancreas transplant that failed as well. He has had both hypertension and hypotension. He has triopathy including neuropathy and retinopathy with poor vision. He has had a previous stroke. SOCIAL HISTORY: He is , disabled, does help try to take care of him. REVIEW OF SYSTEMS: GENERAL: He continues to do poorly. He has had a poor appetite, will only eat salty food. SKIN: He does not have any skin rashes. EYES: Vision is poor. ENT: Denies mouth ulcers. ENDOCRINE: Positive for the diabetes. [facility] [address] [place] [address] CONSULTATION Name: MANGO MICHAUD Room #: [facility] IN [facility].#: [id number] Admission: 06/06/17 Attend Phys: Rigoberto Arrington MD Discharge: Date of : 47 Report #: [id number] RESPIRATORY: Easily short-winded, currently on BiPAP. CARDIAC: He has got the decreased ejection fraction as mentioned. GASTROINTESTINAL: Poor appetite as mentioned. No diarrhea, no bloody stool. GENITOURINARY: Makes very little urine anymore. NEUROLOGIC: Generalized severe weakness in addition to the poor vision. He is hard of hearing. PHYSICAL EXAMINATION: VITAL SIGNS: This is an extremely debilitated, ill, weak gentleman seen in the ICU. SKIN: Negative. SKELETAL: Well developed, well nourished, nonobese. HEENT: Extraocular movements are full. No scleral icterus. Mucous membranes are dry. NECK: Veins are somewhat distended. CHEST: Shows crackles at the lung bases with diminished breath sounds at the lung bases. HEART: Distant. ABDOMEN: Soft, nontender. EXTREMITIES: Show 2-3+ bilateral lower extremity edema. LABORATORY DATA: Hemoglobin is 10.2, sodium 136, potassium 5, chloride 98, bicarbonate 32, creatinine 3.3, BUN 26. ASSESSMENT AND PLAN: 1. Volume overload, congestive heart failure. We will try ultrafiltration today and tomorrow in an attempt to get his breathing better and make him more comfortable. He will need aggressive daily treatments. He has at least 20 pounds of fluid up probably more. We need to get all the fluid off of him and then reevaluate. 2. End-stage renal disease. 3. Failed renal transplant. 4. Decreased vision. 5. Hard of hearing. 6. Decreased left ventricular ejection fraction. 7. Failed pancreas transplant. 8. History of cerebrovascular accident. 9. Extreme frailty, debility and weakness. <ELECTRONICALLY SIGNED> By: Noel Stevens MD 06/10/17 1141 1551 1824 Noel Stevens MD /nt
--- NOTE | ~2017-06-06 | HC ---
[facility] [place] [place] [address] CONSULTATION Name: MANGO MICHAUD Room #: 247-P [facility] IN ..#: [id number] Admission: 06/06/17 Attend Phys: Rigoberto Arrington MD Discharge: Date of : 47 Report #: [id number] THIS REPORT FOR: //name// CC: Radha RAMOS physician/PCP Noel Arrington LOCATION: ICU. Patient of Dr. Arrington. HISTORY OF PRESENT ILLNESS: One of multiple admissions for this 71-year-old white male with multiple medical problems including renal failure, recurrent pleural effusions and type 1 diabetes. The patient was recently discharged on a regimen of t.i.d. low dose lispro and bedtime which the family states was controlling the sugar excellently until admission. The patient apparently has had worsening of his pleural effusions regarding a thoracentesis. He is now minimally verbal. Glucoses are poorly controlled using only high dose of lispro with no basal insulin. Glucoses over the past day has been in the range of 446, otherwise there is no interval history available at this time that is different from prior records. OBJECTIVE: LABORATORY DATA: Elevated glucoses as above. Otherwise, labs is as per chart. PHYSICAL EXAMINATION: GENERAL: Thin 71-year-old white male who does not respond except minimally to verbal questioning. VITAL SIGNS: He is afebrile, heart rate 86 and regular, blood pressure 120/95. Height and weight have not yet been obtained. SKIN: Warm and moist with decreased turgor. EYES: PERRL. CHEST: Coarse breath sounds and rhonchi throughout. HEART: Regular rhythm without murmurs, rubs or gallops. ABDOMEN: Benign. EXTREMITIES: Show no edema, cyanosis or clubbing. Peripheral pulses 2+ and equal bilaterally. NEUROLOGIC: Difficult to obtain due to the patient's lack of responsiveness. ASSESSMENT: Diabetes mellitus, out of control due to current insulin regimen and stress of recurrent pleural effusions and other medical conditions. The patient's glucose control is further complicated by changes due to every other day hemodialysis. PLAN: I will attempt to readjust insulin to lower blood sugar to a safe level. [facility] [address] [place] [address] CONSULTATION Name: MANGO MICHAUD Deepika Room #: 247-P [facility] IN ..#: [id number] Admission: 06/06/17 Attend Phys: Rigoberto Arrington MD Discharge: Date of : 47 Report #: [id number] I will not attempt tight control at this time until the patient is much more stable due to the risk of precipitating hypoglycemia. Thank you very much for this consultation. I will continue to follow the patient with you for attempted management of diabetes mellitus. <ELECTRONICALLY SIGNED> By: Tahir Elizabeht MD 06/11/17 1039 1308 1326 Tahir Elizabeth MD /nt
--- NOTE | ~2017-06-06 | HC ---
[facility] [place] [address] CONSULTATION Name: JASWANTMANGO Room #: 247-P [facility] IN ..#: [id number] Admission: 06/06/17 Attend Phys: Rigoberto Arrington MD Discharge: 06/12/17 Date of : 47 Report #: [id number] THIS REPORT FOR: //name// CC: Radha RAMOS physician/PCP Noel Arrington DICTATING PHYSICIAN: Caio Perales DO REQUESTING PHYSICIAN: Dr. Holland. CHIEF COMPLAINT: Delirium. HISTORY OF PRESENT ILLNESS: The patient is a 71-year-old male who presented initially to [facility] on 06/06/2017. The patient had presented from home where he had been for 8 days after discharge from rehab. Unfortunately, the patient has had a decline in his overall mental status. He has had this recurrently happen according to his spouse; however, he had bounced back rapidly in the past and had had improvement in his mental status. Unfortunately, at this time, he has had several days of worsening mental status. There was some concern expressed by Neurology that the patient had had areas of previous ischemia and that this may have led to worsening overall areas of ischemia and that is in the penumbra. Additionally, the patient does have delirium on top of this and has had poor responsiveness as well as p.o. intake. The patient additionally has end-stage renal disease. I have discussed with Dr. Killian today with regards to his care. It is their opinion that as well the patient is in a critical state and that he would no longer benefit likely from quality of life from continued dialysis. They have had recurrent issues with dialysis with regards to ultrafiltration and removing enough fluid which has led to recurrent pleural effusion for which he has PleurX drain on one side and there was consideration of another PleurX drain on the other side. This is what the spouse is grappling with at this time as to whether to continue dialysis or not and whether to pursue additional drain procedure. The patient is currently unresponsive on my interview today, was not following commands. He appeared to be hypoactive delirium at this time, did not appear to be in any acute distress and per spouse has not been responsive for the most part in several days. PAST MEDICAL HISTORY: Significant for congestive heart failure, end-stage renal disease, right carotid stenosis, history of CVA with left hemiparesis, peripheral neuropathy, retinopathy secondary to diabetes. PAST SURGICAL HISTORY: Failed renal transplant, failed pancreatic transplant, cholecystectomy, AV fistula left arm, insulin pump placement. He has had amputation of right fourth and fifth toes and left fifth toe. MEDICATIONS: Previously Demadex, lactobacillus, vancomycin, albuterol. [address] [address] CONSULTATION Name: MANGO MICHAUD Room #: 247-P [facility] IN M.R.#: [id number] Admission: 06/06/17 Attend Phys: Rigoberto Arrington MD Discharge: 06/12/17 Date of : 47 Report #: [id number] FAMILY HISTORY: Congestive heart failure. ALLERGIES: CODEINE and NORCO, these caused vomiting in the past. SOCIAL HISTORY: Spouse is present for my interview. He is currently a full code. He has 2 older children that are not living in town. REVIEW OF SYSTEMS: Unable to obtain due to medical condition. PHYSICAL EXAMINATION: VITAL SIGNS: Temperature 37.4, pulse 92, respirations 19, blood pressure 141/48, 97% on nasal cannula. GENERAL: The patient is not alert. Poor attention level. No acute distress seen at this time. HEENT: Unable to assess extraocular movement. CARDIOVASCULAR: He has regular rate and rhythm without murmur at this time. RESPIRATORY: Lungs are clear to auscultation bilaterally. No wheezes, rales or rhonchi but he does have diminished lung sounds bibasilar. ABDOMEN: Soft, diminished bowel sounds noted throughout. LABORATORY DATA: Include today, sodium 136, potassium 5.5, hemoglobin 9.9, white blood cells 12.8. ASSESSMENT AND PLAN: 1. Delirium. This has multiple potential origins. Unfortunately, the patient has had a history of cerebrovascular accident and may have had worsening ischemia of the penumbra area. Additionally, the patient may have delirium from multiple other medical reasons at this time. I did discuss extensively with the patient's spouse with regards to palliative care at this point. The patient's spouse was questioning whether or not to continue with dialysis, although at this point in time, she states that she does know that this is not supportive of his quality of life and would not want to pursue dialysis any further. She additionally is amenable to full palliative care measures including withdrawing of many medications and weaning of oxygen to maintain comfort only. In addition, she is amenable to pain and anxiety medications to prevent any distress at end of life. She is amenable also to the possibility of changing to an inpatient hospice setting if the patient were to be stable over the next 24-48 hours. The patient is no longer on pressor and I did advise the spouse to call the older children to be able to see their father if they desire. I did not consult barrel burner today as well, did place orders for palliative care medications and measures. 2. End-stage renal disease. Did discuss with Dr. Killian today and we both agree that discontinuation of hemodialysis would be appropriate. The spouse is in agreement on this measure. I discussed this with staff today. 3. History of cerebrovascular accident. Again this is likely contributing to [facility] [address] [place] [address] CONSULTATION Name: MANGO MICHAUD Deepika Room #: 247-P [facility] IN [facility].#: [id number] Admission: 06/06/17 Attend Phys: Rigoberto Arrington MD Discharge: 06/12/17 Date of : 47 Report #: [id number] above. We will pursue palliative care measures at this time. 4. Recurrent pleural effusions. Again contributing to above, she no longer desires to pursue additional PleurX drain. I believe that this is a reasonable measure, all considering with regards to his current medical status. Again, as above, I spent approximately 40 minutes in discussion of advanced care planning today and I did discuss this with case management as well. We will continue to follow with this case. Please contact me for any questions regarding his current care and future developments. <ELECTRONICALLY SIGNED> By: Caio Perales DO 07/14/17 1630 [id number] Caio Perales DO /nt
[2017-06-06 13:38] LABS: ABSOLUTE NEUTROPHILS 6.3 thou/uL (1.4-8.2); BASOPHILS 1.1 % (0.0-2.0); EOSINOPHILS 0.6 % (0.0-3.0); HEMATOCRIT 31.8 % (42.0-52.0); HEMOGLOBIN 10.2 gm/dL (14.0-18.0); LYMPHOCYTES 7.2 % (24.0-44.0); MCH 28.4 pg (26.0-34.0); MCHC 32.1 g/dL (28.0-37.0); MCV 88.5 fL (80.0-100.0); MONOCYTES 7.5 % (1.0-8.0); PLATELET COUNT 358 thou/uL (150-400); POLYS 83.6 % (36.0-66.0); RBC 3.59 mil/uL (4.50-6.00); RDW 15.8 % (10.5-14.5); WBC 7.5 thou/uL (4.0-11.0)
[2017-06-06 13:47] LABS: CREATININE 3.3 mg/dL (0.7-1.3)
[2017-06-06 13:55] LABS: ALBUMIN 2.5 g/dL (3.4-5.0); TOTAL BILIRUBIN 0.4 mg/dL (<0.1-1.0); TOTAL PROTEIN 7.2 g/dL (6.4-8.2); TROPONIN-I 0.05 ng/mL (<0.06)
[2017-06-06 15:51] LABS: BE(vivo) 0.6 mmol/L (-2 to +3); HCO3 28.1 mmol/L (22.0-26.0); PCO2 60.5 mmHg (35.0-45.0); PO2 95.7 mmHg (80.0-100.0); sO2 96.3 % (92.0-98.0)
[2017-06-06 15:52] LABS: pH 7.285 (7.360-7.450)
[2017-06-07] VITALS (83 sets, daily range): BP systolic 89–162; BP diastolic 30–89
[2017-06-07 04:57] LABS: HEMATOCRIT 29.4 % (42.0-52.0); HEMOGLOBIN 9.5 gm/dL (14.0-18.0); MCH 28.6 pg (26.0-34.0); MCHC 32.3 g/dL (28.0-37.0); MCV 88.6 fL (80.0-100.0); PLATELET COUNT 311 thou/uL (150-400); RBC 3.32 mil/uL (4.50-6.00); RDW 16.5 % (10.5-14.5); WBC 4.9 thou/uL (4.0-11.0)
[2017-06-07 05:13] LABS: ALBUMIN 2.2 g/dL (3.4-5.0); CALCIUM 8.7 mg/dL (8.5-10.1); CREATININE 4.1 mg/dL (0.7-1.3); POTASSIUM 5.9 mmol/L (3.5-5.1); TOTAL BILIRUBIN 0.4 mg/dL (<0.1-1.0); TOTAL PROTEIN 6.5 g/dL (6.4-8.2)
[2017-06-07 05:50] LABS: BE(vivo) 3.1 mmol/L (-2 to +3); HCO3 31.4 mmol/L (22.0-26.0); PO2 111.3 mmHg (80.0-100.0); sO2 97.3 % (92.0-98.0)
[2017-06-07 05:51] LABS: PCO2 69.8 mmHg (35.0-45.0); pH 7.271 (7.360-7.450)
[2017-06-07 06:26] LABS: ABSOLUTE NEUTROPHILS 4.1 thou/uL (1.4-8.2); ANISOCYTOSIS 1+; PLATELET ESTIMATE NORMAL
[2017-06-07 08:58] LABS: INR 1.1; PROTIME 10.9 Seconds (9.3-11.4)
[2017-06-07 10:51] LABS: CLARITY SLIGHTLY CLOUDY; COLOR YELLOW; SOURCE LEFT CHEST; TOTAL VOLUME 60 mL
[2017-06-07 11:57] LABS: BF NUCLEATED CELLS 143; BF RBC 1292 /uL
[2017-06-07 12:36] LABS: BF MACROPHAGE 23; BF NEUTROPHILS 0
[2017-06-08] VITALS (27 sets, daily range): BP systolic 99–176; BP diastolic 34–80
[2017-06-08 04:45] LABS: HEMATOCRIT 31.1 % (42.0-52.0); MCH 28.6 pg (26.0-34.0); MCHC 32.2 g/dL (28.0-37.0); MCV 88.8 fL (80.0-100.0); RBC 3.5 mil/uL (4.50-6.00); RDW 16.6 % (10.5-14.5); WBC 6.1 thou/uL (4.0-11.0)
[2017-06-08 04:55] LABS: CALCIUM 8.2 mg/dL (8.5-10.1); PHOSPHORUS 4.6 mg/dL (2.5-4.9); POTASSIUM 5.2 mmol/L (3.5-5.1)
[2017-06-08 04:59] LABS: CREATININE 2.8 mg/dL (0.7-1.3)
[2017-06-08 10:11] LABS: BODY FLUID ALBUMIN 1.2 g/dL (()); BODY FLUID AMYLASE 12 U/L (()); BODY FLUID GLUCOSE 230 mg/dL (()); BODY FLUID LDH 104 IU/L (()); BODY FLUID PROTEIN 2.3 g/dL (())
[2017-06-08 10:47] LABS: SOURCE THORACENTESIS
[2017-06-09] VITALS (53 sets, daily range): BP systolic 83–150; BP diastolic 19–94
[2017-06-09 05:25] LABS: HEMATOCRIT 31.5 % (42.0-52.0); HEMOGLOBIN 10.3 gm/dL (14.0-18.0); MCH 28.8 pg (26.0-34.0); MCHC 32.7 g/dL (28.0-37.0); RBC 3.58 mil/uL (4.50-6.00); RDW 16.2 % (10.5-14.5); WBC 7.2 thou/uL (4.0-11.0)
[2017-06-09 05:32] LABS: CALCIUM 8.2 mg/dL (8.5-10.1)
[2017-06-09 05:44] LABS: CREATININE 4.1 mg/dL (0.7-1.3)
[2017-06-10] VITALS (52 sets, daily range): BP systolic 71–150; BP diastolic 26–94
[2017-06-10 00:07] LABS: ADENOVIRUS Negative (Negative); INFLUENZA A Negative (Negative); INFLUENZA B Negative (Negative); METAPNEUMOVIRUS Negative (Negative); PARAINFLUENZA 1 Negative (Negative); PARAINFLUENZA 2 Negative (Negative); PARAINFLUENZA 3 Negative (Negative); RHINOVIRUS Negative (Negative); RSV A Positive (Negative); RSV B Negative (Negative)
[2017-06-10 14:21] LABS: CLARITY SLIGHTLY CLOUDY; COLOR YELLOW; SOURCE RIGHT CHEST; TOTAL VOLUME 64 mL
[2017-06-10 14:22] LABS: SOURCE RIGHT CHEST
[2017-06-10 14:35] LABS: BF NUCLEATED CELLS 359; BF RBC 691
[2017-06-10 15:48] LABS: BF MACROPHAGE 19; BF NEUTROPHILS 0
[2017-06-11] VITALS (14 sets, daily range): BP systolic 103–141; BP diastolic 37–65
[2017-06-11 04:23] LABS: CALCIUM 8.4 mg/dL (8.5-10.1); CREATININE 4.9 mg/dL (0.7-1.3); POTASSIUM 5.5 mmol/L (3.5-5.1)
[2017-06-11 04:45] LABS: HEMATOCRIT 31.7 % (42.0-52.0); HEMOGLOBIN 9.9 gm/dL (14.0-18.0); MCHC 31.2 g/dL (28.0-37.0); MCV 89.8 fL (80.0-100.0); RBC 3.53 mil/uL (4.50-6.00); RDW 16.1 % (10.5-14.5); WBC 12.8 thou/uL (4.0-11.0)
[2017-06-11 10:25] LABS: BF COMMENTS ND
[2017-06-11 13:11] LABS: BODY FLUID ALBUMIN 1.2 g/dL (()); BODY FLUID AMYLASE 12 U/L (()); BODY FLUID GLUCOSE 371 mg/dL (()); BODY FLUID LDH 95 IU/L (()); BODY FLUID PROTEIN 2.4 g/dL (())
[2017-06-12 00:01] VITALS: BP 118/49
[2017-06-12 04:00] VITALS: BP 132/54
[2017-06-12 08:00] VITALS: BP 126/52
[2017-06-12 12:00] VITALS: BP 119/59
== END 2017-06-12 12:59 | disposition hospice, home (50) | DRG 199 ==
LOC: ER 13:13 → EROBS 14:27 → ICU 14:27
PROVIDERS: Hospitalist; Internal Medicine Nephrology; Internal Medicine Pulmonary Disease; Physician Assistant
PROC: 5A1D70Z Performance of Urinary Filtration, Intermittent, Less than 6 Hours Per Day (ICD-10-PCS; principal; 2017-06-06)
PROC: 0W9B30Z Drainage of Left Pleural Cavity with Drainage Device, Percutaneous Approach (ICD-10-PCS; 2017-06-07)
PROC: 5A09357 Assistance with Respiratory Ventilation, Less than 24 Consecutive Hours, Continuous Positive Airway Pressure (ICD-10-PCS; 2017-06-07)
PROC: 5A1D70Z Performance of Urinary Filtration, Intermittent, Less than 6 Hours Per Day (ICD-10-PCS; 2017-06-07)
PROC: 0W9B3ZZ Drainage of Left Pleural Cavity, Percutaneous Approach (ICD-10-PCS; 2017-06-07)
PROC: 5A1D70Z Performance of Urinary Filtration, Intermittent, Less than 6 Hours Per Day (ICD-10-PCS; 2017-06-09)
PROC: 0W993ZZ Drainage of Right Pleural Cavity, Percutaneous Approach (ICD-10-PCS; 2017-06-10)
PROC: 02HV33Z Insertion of Infusion Device into Superior Vena Cava, Percutaneous Approach (ICD-10-PCS; 2017-06-10)
PROC: 5A1D70Z Performance of Urinary Filtration, Intermittent, Less than 6 Hours Per Day (ICD-10-PCS; 2017-06-11)
DX: J93.9 Pneumothorax, unspecified (principal); N18.6 End stage renal disease; J96.22 Acute and chronic respiratory failure with hypercapnia; J96.21 Acute and chronic respiratory failure with hypoxia; E43 Unspecified severe protein-calorie malnutrition; I50.23 Acute on chronic systolic (congestive) heart failure; J90 Pleural effusion, not elsewhere classified; Z94.83 Pancreas transplant status; Z94.0 Kidney transplant status; Z68.1 Body mass index [BMI] 19.9 or less, adult; I13.2 Hypertensive heart and chronic kidney disease with heart failure and with stage 5 chronic kidney disease, or end stage renal disease; E78.5 Hyperlipidemia, unspecified; K21.9 Gastro-esophageal reflux disease without esophagitis; F32.9 Major depressive disorder, single episode, unspecified; R41.0 Disorientation, unspecified; E10.42 Type 1 diabetes mellitus with diabetic polyneuropathy; E10.319 Type 1 diabetes mellitus with unspecified diabetic retinopathy without macular edema; E10.22 Type 1 diabetes mellitus with diabetic chronic kidney disease; I25.10 Atherosclerotic heart disease of native coronary artery without angina pectoris; E87.5 Hyperkalemia; R62.7 Adult failure to thrive; I95.9 Hypotension, unspecified; H54.8 Legal blindness, as defined in USA; Z79.899 Other long term (current) drug therapy; Z86.73 Personal history of transient ischemic attack (TIA), and cerebral infarction without residual deficits; Z95.820 Peripheral vascular angioplasty status with implants and grafts; Z79.4 Long term (current) use of insulin; Z89.422 Acquired absence of other left toe(s); Z89.421 Acquired absence of other right toe(s); Z90.49 Acquired absence of other specified parts of digestive tract; Z88.6 Allergy status to analgesic agent; Z88.8 Allergy status to other drugs, medicaments and biological substances; Z82.49 Family history of ischemic heart disease and other diseases of the circulatory system
CPT/HCPCS: 10078; 27000; 32100